=== PATIENT | female | born 1955 | race Caucasian/White ===

== ENCOUNTER 2016-10-01 21:09 | Emergency (ER) | payer BC ==
[~2016-10-01] VITALS: Ht 144.8 cm; Wt 62.5 kg
[~2016-10-01 21:09] MED LIST: AMLO-147 PO; ASPI325T4 PO; DOCU-144 PO; LANT3I SC; LINA5TAB PO; LINE600T6 PO; METO-448 PO; PANT40TA4 PO; PERCOCET PO; SAN30GM TOP; SITA1TAB7 PO
[2016-10-01 21:22] VITALS: Ht 144.8 cm; Wt 62.5 kg
[2016-10-01] MEDS ORDERED: SOD CHLORIDE 0.9% 1,000 ML IV STA (21:35)
[2016-10-01] MEDS ORDERED: DICLOFENAC SODIUM 37.5 MG/ML VIAL IV STA (21:45)
[2016-10-01] MEDS ORDERED: LABETALOL HCL 20MG INJ IV ONE (22:00)
[2016-10-01] MEDS ORDERED: LANT3I SC (22:12)
[2016-10-01] MEDS ORDERED: HYDR-3671 PO (22:13)
[2016-10-01] MEDS ORDERED: PRAV10TA43 PO (22:13)
[2016-10-01] MEDS ORDERED: LOSA100T7 PO (22:14)
[2016-10-01] MEDS ORDERED: SITA1TAB5 PO (22:15)
[2016-10-01] MEDS ORDERED: ASPI-664 PO (22:16)
[2016-10-01 22:26] LABS: BASOPHIL # 0.1 10^3/ul (0.0-0.1); BASOPHILS % 0.4 % (0.0-2.0); CHLORIDE 96 mmol/L (97-110); EOSINOPHILS # 0.2 10^3/ul (0.0-0.5); EOSINOPHILS % 1.4 % (0.0-7.0); HEMATOCRIT 33.3 % (37.0-47.0); HEMOGLOBIN 11.1 g/dl (12.0-16.0); LYMPHOCYTES % 22.3 % (15.0-51.0); MEAN CORPUSCULAR HEMOGLOBIN 27.8 pg (29.0-33.0); MEAN CORPUSCULAR HGB CONC 33.3 g/dl (32.0-37.0); MEAN CORPUSCULAR VOLUME 83.5 fl (82.0-101.0); MONOCYTE # 0.9 10^3/ul (0.3-0.9); MONOCYTES % 6.5 % (0.0-11.0); NEUTROPHIL # 9.2 10^3/ul (1.6-7.5); NEUTROPHILS % 69.4 % (39.0-77.0); PLATELET COUNT 454 10^3/UL (140-440); POTASSIUM 5.6 mmol/L (3.5-5.1); RED BLOOD COUNT 3.99 10^6/ul (4.20-5.40); RED CELL DISTRIBUTION WIDTH 16.6 % (11.5-14.5); SODIUM 137 mmol/L (135-144); UNCORRECTED WBC 13.3 10^3/ul (4.8-10.8); WHITE BLOOD COUNT 13.3 10^3/ul (4.8-10.8)
[2016-10-01 22:29] LABS: ANION GAP 19 (8-16); BLOOD UREA NITROGEN 28 mg/dl (7-20); CARBON DIOXIDE 28 mmol/L (21-31); CREATININE 1.03 mg/dl (0.44-1.00); GLUCOSE 309 mg/dl (70-220)
[2016-10-01] MEDS ORDERED: morphine 4 MG/ML VIAL IV STA (22:29)
[2016-10-01] MEDS ORDERED: ONDANSETRON 4 MG INJ IV STA (22:29)
[2016-10-01 22:30] LABS: CALCIUM 9.4 mg/dl (8.4-10.2)
[2016-10-01] MEDS ORDERED: METHYLPREDNISOLONE 125 MG INJ IV ONE (22:30)
[2016-10-01 22:32] LABS: CONDITION 1; LH ANALYZER COMMENTS 1
[2016-10-01 22:58] LABS: TROPONIN-I < 0.012 ng/ml (0.00-0.12)
[2016-10-02] VITALS: BP 160/70; PULSE 91; RESP 16
[2016-10-02] MEDS ORDERED: HYDR-906 PO (00:45)
[2016-10-02] MEDS ORDERED: METH-70 PO (00:45)
[2016-10-02] MEDS ORDERED: IBUP-1542 PO (00:45)
--- NOTE | 2016-10-02 00:47 | ERD ---
ER Documentation Chief Complaint Date/Time DATE: 10/02/16 TIME: 00:45 Chief Complaint neck & L arm x 3-4 days (05/30) HPI This is a 61-year-old female who complains of 4 days of continuous pain in the left trapezius and left posterior neck. There is no arm pain. She has no chest pain or shortness of breath no diaphoresis and nausea vomiting. The patient thinks that she slept wrong because she woke up in the morning at onset with the symptoms. Pain is worse with movement of the left shoulder or left arm or turning her head from side to side. The pain is a constant aching sharp with movement and better with rest. No radiculopathy ROS All systems reviewed and are negative except as per history of present illness. Medications Home Meds Active Scripts Hydrocodone/Acetaminophen ([place] 5-325 Tablet) 1 Each Tablet, 1 TAB PO Q6H Y for PAIN, #20 TAB Prov:LIZ AMBRIZ. DO 10/02/16 Methocarbamol* (Robaxin*) 750 Mg Tablet, 750 MG PO TID, #14 TAB Prov:LIZ AMBRIZ. DO 10/02/16 Ibuprofen* (Motrin*) 600 Mg Tab, 600 MG PO Q8, #30 TAB Prov:LIZ AMBRIZ. DO 10/02/16 Reported Medications Aspirin* (Aspirin* EC) 81 Mg Tablet.dr, 162 MG PO DAILY, TAB 10/01/16 Sitagliptin Phos/Metformin HCl (Janumet 50-1,000 mg Tablet) 1 Each Tablet, 1 EACH PO BID, TAB 10/01/16 Losartan Potassium* (Losartan Potassium*) 100 Mg Tablet, 100 MG PO DAILY, TAB 10/01/16 Pravastatin Sodium* (Pravastatin Sodium*) 10 Mg Tablet, 10 MG PO DAILY, TAB 10/01/16 Hydralazine Hcl* (Hydralazine Hcl*) 25 Mg Tab, 25 MG PO Q8, #90 TAB 10/01/16 Insulin Glargine* (Lantus*) 100 Unit/Ml Soln, 17 UNIT SC QHS, #1 VIAL 10/01/16 Discontinued Reported Medications Sitagliptin Phos-Metformin Hcl (Janumet) 50-1,000 Mg Tablet, 1 TAB PO BID, TAB 04/10/14 Aspirin* (Aspirin*) 325 Mg Tablet, 81 MG PO DAILY, TAB 04/10/14 Discontinued Scripts Metoprolol Tartrate* (Lopressor*) 25 Mg Tab, 12.5 MG PO BID, #60 TAB Prov:FRANCISCA KILLIAN MD 08/10/16 Linezolid (Linezolid) 600 Mg Tablet, 600 MG PO BID, #20 TAB Prov:FRANCISCA KILLIAN MD 08/09/16 Pantoprazole* (Pantoprazole*) 40 Mg Tablet.dr, 40 MG PO DAILY@06 for 1 Day Prov:FRANCISCA KILLIAN MD 07/25/16 Oxycodone Hcl/Acetaminophen (Percocet) 1 Tab Tab, 1 TAB PO Q6H Y for MODERATE PAIN LEVEL 4-6 for 1 Day, TAB Prov:FRANCISCA KILLIAN MD 07/25/16 Linagliptin (TRADJENTA) 5 Mg Tablet, 5 MG PO WITH DINNER for 1 Day, TAB Prov:FRANCISCA KILLIAN MD 07/25/16 Insulin Glargine* (Lantus*) 100 Unit/Ml Soln, 17 UNIT SC QPM for 1 Day Prov:FRANCISCA KILLIAN MD 07/25/16 Collagenase* (Santyl*) 30 Gm Oint..gm., 1 APPLIC TOP DAILY Y for Clean wound for 1 Day Prov:FRANCISCA KILLIAN MD 07/25/16 Docusate Sodium* (Colace*) 100 Mg Capsule, 100 MG PO BID, #60 CAP Prov:CARMEN ELLIOTT MD 07/09/16 Amlodipine Besylate* (Amlodipine Besylate*) 10 Mg Tablet, 10 MG PO DAILY for 30 Days, #30 TAB Prov:CARMEN ELLIOTT MD 07/09/16 Allergies Allergies: Coded Allergies: No Known Drug Allergy (Verified Allergy, Unknown, 10/01/16) PMhx/Soc History of Surgery: Yes (S/P FEMPOP BYPASS;CATARACT SURGERY) Anesthesia Reaction: No Hx Neurological Disorder: Yes Hx Respiratory Disorders: Yes (HIGH BLOOD PRESSURE;HIGH CHOL) Hx Cardiac Disorders: Yes Hx Psychiatric Problems: No Hx Miscellaneous Medical Probl: No Hx Alcohol Use: No Hx Substance Use: No Hx Tobacco Use: No Smoking Status: Never smoker FmHx Family History: No coronary disease Physical Exam Vitals Vital Signs Date Time Temp Pulse Resp B/P Pulse Ox O2 Delivery O2 Flow Rate FiO2 10/01/16 23:13 91 14 159/67 99 Room Air 10/01/16 22:11 92 13 136/56 99 Room Air 10/01/16 21:45 90 14 191/86 99 Room Air 10/01/16 21:22 97.7 107 18 199/86 99 Physical Exam Const: Well-developed, well-nourished Head: Atraumatic, normocephalic Eyes: Normal Conjunctiva, PERRLA, EOMI, normal sclera, no nystagmus ENT: Normal External Ears, Nose and Mouth, moist mucus membranes. Neck: Full range of motion. No meningismus, no lymphadenopathy, spasm to the left trapezius and left posterior cervical region pain is 100% reproducible with palpation and range of motion of head shoulder and left arm. Resp: Clear to auscultation bilaterally, no wheezing, rhonchi, rales Cardio: Regular rate and rhythm, no murmurs, S1 S2 present Abd: Soft, non tender x 4, non distended. Normal bowel sounds, no guarding or rebound, no pulsitile abdominal masses or bruits Skin: No petechiae or rashes, no ecchymosis , no maculopapular rash Back: No midline or flank tenderness Ext: No cyanosis, or edema, FROM x 4, normal inspection, neurovascularly intact x 4 Neur: Awake and alert, STR 5/5 x 4, sensation intact x 4, no focal findings, cerebellum intact Psych: Normal Mood and Affect Result Diagram: 10/01/16 2200 10/01/16 2350 Results 24 hrs Laboratory Tests Test 10/01/16 22:00 10/01/16 22:14 10/01/16 23:50 Anion Gap 19 Basophils # 0.110^3/ul Basophils % 0.4% Blood Morphology Comment Blood Urea Nitrogen 28mg/dl Calcium Level 9.4mg/dl Carbon Dioxide Level 28mmol/L Chloride Level 96mmol/L Creatinine 1.03mg/dl Eosinophils # 0.210^3/ul Eosinophils % 1.4% Glucose Level 309mg/dl Hematocrit 33.3% Hemoglobin 11.1g/dl Lactic Acid Level 1.3mmol/L Lymphocytes # 3.010^3/ul Lymphocytes % 22.3% Mean Corpuscular Hemoglobin 27.8pg Mean Corpuscular Hemoglobin Concent 33.3g/dl Mean Corpuscular Volume 83.5fl Mean Platelet Volume 9.0fl Monocytes # 0.910^3/ul Monocytes % 6.5% Neutrophils # 9.210^3/ul Neutrophils % 69.4% Nucleated Red Blood Cells # 0.010^3/ul Nucleated Red Blood Cells % 0.0/100WBC Platelet Count 30663^3/UL Potassium Level 5.6mmol/L 5.3mmol/L Red Blood Count 3.9910^6/ul Red Cell Distribution Width 16.6% Sodium Level 137mmol/L Troponin I < 0.012ng/ml White Blood Count 13.310^3/ul Bedside Glucose 329mg/dL Current Medications Medications (Trade) Dose Ordered Sig/Patricia Route PRN Reason Start Time Stop Time Status Last Admin Dose Admin Sodium Chloride (NS) 1,000 ml @ 1,000 mls/hr Q1H STAT IV 10/01/16 21:35 10/01/16 22:34 10/01/16 21:53 Diclofenac Sodium (Dyloject) 37.5 mg ONCE STAT IV 10/01/16 21:45 10/01/16 21:46 10/01/16 22:00 Labetalol HCl (Labetalol) 20 mg ONCE ONCE IV 10/01/16 22:00 10/01/16 22:01 10/01/16 21:56 Morphine Sulfate (morphine) 4 mg ONCE STAT IV 10/01/16 22:29 10/01/16 22:30 10/01/16 22:42 Ondansetron HCl (Zofran Inj) 4 mg ONCE STAT IV 10/01/16 22:29 10/01/16 22:30 10/01/16 22:42 Methylprednisolone Sodium Succinate (Solu-Medrol) 125 mg ONCE ONCE IV 10/01/16 22:30 10/01/16 22:31 10/01/16 22:41 Sodium Polystyrene Sulfonate (Kayexalate) 30 gm ONCE ONCE PO 10/02/16 01:00 10/02/16 01:01 UNV Procedures/MDM EKG: Rate/Rhythm: Sinus tachycardia heart rate 106 QRS, ST, QT: NORMAL OK, QRS, QT] Impression: [NORMAL EKG Repeat potassium is 5.3 will treat with 1 dose of Kayexalate Patient's pain is clearly musculoskeletal and not cardiac in origin pain is reproducible with palpation and movement] Departure Diagnosis: Primary Impression: Muscle spasm Additional Impression: Musculoskeletal pain Condition: Stable Patient Instructions: Muscle Spasm LIZ AMBRIZ DO Oct 02, 2016 00:47
[2016-10-02] MEDS ORDERED: NA POLYST SULFON 15 GM/60 ML BTL PO ONE (01:00)
== END 2016-10-02 01:16 | disposition home or self-care (01) ==
LOC: E/R 21:09
DX: M62.838 Other muscle spasm (principal); E11.9 Type 2 diabetes mellitus without complications; Z79.4 Long term (current) use of insulin; Z79.84 Long term (current) use of oral hypoglycemic drugs; Z79.82 Long term (current) use of aspirin
CPT/HCPCS: 36415; 80048; 82962; 83605; 84132; 84484; 85025; 93005; 96374; 96375; 99284; J2270; J2405; J2930; J7030; Z7610

== ENCOUNTER 2016-10-06 11:29 | Inpatient (IN) | payer BC ==
[~2016-10-06] VITALS: Ht 142.2 cm; Wt 61.1 kg
[~2016-10-06 11:29] MED LIST changes: -AMLO-147 PO; +ASPI-664 PO; -ASPI325T4 PO; -DOCU-144 PO; +HYDR-3671 PO; +HYDR-906 PO; +IBUP-1542 PO; -LINA5TAB PO; -LINE600T6 PO; +LOSA100T7 PO; +METH-70 PO; -METO-448 PO; -PANT40TA4 PO; -PERCOCET PO; +PRAV10TA43 PO; -SAN30GM TOP; +SITA1TAB5 PO; -SITA1TAB7 PO
--- NOTE | 2016-10-06 12:51 | HP ---
DATE OF ADMISSION: 10/06/2016 TYPE OF CONSULTATION: Vascular surgery consultation. Dear Doctors: HISTORY OF PRESENT ILLNESS: Ms. Butt is a 61-year-old female known to our vascular surgery servic e secondary to right lower extremity diabetic foot infection and gangrene of her third and fourth to es, in which she subsequently underwent a right lower extremity revascularization with the right prakash perficial femoral artery to distal dorsalis pedis artery in situ bypass. The patient had been follo wing up with us in our vascular surgery clinic for evaluation of her third toe tip gangrene that we have been following with allowing it to demarcate and try to salvage as much of the toe as possible. She has been taking care of her toe at home with local wound care with Betadine paint were been gr adually had debriding and areas of gangrene hoping to salvage as much of the toe. Today, she presen ts to our office with presentation of erythema, swelling and pain of her right lower extremity, gage cially the areas of demarcation with necrotic tissue. At the moment, she denies shortness of breath , chest pain, nausea, vomiting, fever or chills. She denies claudication or rest pain-like symptoms . REVIEW OF SYSTEMS: A 12-point review performed and negative except what is mentioned in the HPI. PAST MEDICAL HISTORY: Entails hypertension, diabetes, cholesterolemia peripheral neuropathy, overwe ight, poor compliance. PAST SURGICAL HISTORY: Right lower extremity revascularization, right 4th toe amputation, multiple areas of debridement of the right lower extremity. FAMILY HISTORY: Positive for coronary artery disease and diabetes. SOCIAL HISTORY: Denies alcohol, tobacco or illicit drug use. PHYSICAL EXAMINATION: GENERAL: Alert and oriented x3, no apparent distress. HEENT: Normocephalic, atraumatic. PERRLA, EOMI. Mucosa moist. NECK: Supple. No carotid bruit. PULMONARY: Clear to auscultation bilaterally, no crackles. CARDIOVASCULAR: S1, S2 present. No murmurs. ABDOMEN: Soft, nontender, nondistended. Bowel sounds positive. Truncal obesity. EXTREMITIES: Right lower extremity: Palpable femoral pulse, palpable graft at the knee and at the ankle. Motor, sensory intact. Cap refill 2 seconds. Surgical scar is well healed, distal aspect of the third to e with gangrene and some necrotic tissue at the area of demarcation. Presence of erythema, edema 2+ . Left lower extremity: Palpable femoral pulse, nonpalpable pedal pulse. Motor, sensory intact. Cap refill 2 to 3 seconds. No ulcers or edema identified. ASSESSMENT AND PLAN: 1. Bilateral lower extremity atherosclerosis with right lower extremity gangrene and diabetic foot infection. It seems the patient has developed a diabetic foot infection and cellulitis of the right lower extremity over the past few days. The patient would need to be admitted for IV antibiotics a nd for monitoring. At some point once the infection has been under control, we will evaluate for po ssible third tip of the toe amputation. For now, we will continue with her IV antibiotics as her ci rculation is adequate and we had recently checked her bypass which is patent. 2. Optimize vascular status (BP meds, diet, nutrition, exercise, sugar control, weight loss, antipl atelets). 3. Discussed findings, plan and management with the patient and her son at the bedside with a certi fied facility maintenance helper and they understand. Thank you for allowing us to partake in the care of your patient. Please call with any questions. Dictated By: ZULMA PARRISH/YOAV Conf#: [id number] DID#: [id number]
[2016-10-06 15:15] VITALS: BP 165/70; PULSE 104; RESP 18
[2016-10-06] MEDS ORDERED: ACETAMINOPHEN 650 MG SUPP PR PRN (16:00)
[2016-10-06] MEDS ORDERED: NACL 0.9% 3 ML SYG IV SCH (16:00)
[2016-10-06] MEDS ORDERED: ACETAMINOPHEN 325 MG TAB PO PRN (16:00)
[2016-10-06] MEDS ORDERED: ZOLPIDEM 5 MG TAB PO PRN (16:00)
[2016-10-06] MEDS ORDERED: BISACODYL 10 MG SUPP PR PRN (16:00)
[2016-10-06] MEDS ORDERED: DOCUSATE SODIUM 100 MG CAP PO PRN (16:00)
[2016-10-06] MEDS: OXYCODONE/ACETAMINOPHEN (5/325) TAB PO PRN (16:25)
--- NOTE | 2016-10-06 16:34 | HP ---
DATE OF ADMISSION: 10/06/2016 CONSULTANTS: 1. ZULMA JEFFERSON MD. 2. SAMUEL HARTMAN DPM. REASON FOR ADMISSION: Right foot cellulitis and bleeding. HISTORY OF PRESENT ILLNESS: This is a very pleasant 61-year-old female who is known to me from her prior hospitalization with a past medical history of right foot cellulitis and amputation of the rig ht 4th toe, right third toe debridement x2, diabetes mellitus type 2, recent superficial femoral art kelly bypass, hypertension, dyslipidemia, arthritis, anemia of chronic disease, rhabdomyolysis, who wa s seen and evaluated at [facility] by Dr. Samuel Hartman, podiatry today and was found to have worsening of h er right foot cellulitis and has been admitted to [facility] for further evaluatio n and treatment. The patient denies any chest pain, shortness of breath, nausea, vomiting and diarr hea. No headache, dizziness, lightheadedness. No change in visual acuity, diplopia, photophobia. Positive for neck pain, no restricted range of motion in upper and lower extremities. Positive for erythema and bleeding from her right foot at the surgical site. Otherwise the 12 review of systems has been found to be negative. PAST MEDICAL AND SURGICAL HISTORY: As above per HPI. MEDICATIONS: 1. Aspirin 81 mg. 2. Hydralazine 25 mg. 3. [place] 5/325. 4. Ibuprofen 600 mg. 5. Lantus 70 units. 6. Losartan 100 mg. 7. Robaxin 750 mg. 8. Atorvastatin 10 mg. 9. Janumet 1000/50. ALLERGIES: NO KNOWN DRUG ALLERGIES. FAMILY HISTORY: Positive for hypertension, diabetes mellitus. SOCIAL HISTORY: Negative x3 for smoking, alcohol, illicit drugs. REVIEW OF SYSTEMS: As above per HPI, otherwise 12 review of systems has been found to be negative. PHYSICAL EXAMINATION: VITAL SIGNS: Temperature 98.5, pulse 104, respiration 18, blood pressure 164/70, oxygen 98% in room air. GENERAL APPEARANCE: The patient is lying in bed comfortably without any distress. She is awake, al ert, oriented. She is able to answer my questions properly. EYES AND ENT: Conjunctivae and lids are normal. Pupils are normal. Extraocular normal. Hearing g rossly normal. Lips, teeth and gums are normal. Oral mucosa is moist. NECK: Supple. Trachea is midline. No lymphadenopathy. RESPIRATORY: Effort is normal. Clear to auscultate bilaterally. CARDIOVASCULAR: Normal S1, S2. Regular rhythm and rate. No murmur, no bruits, no edema. Peripher al pulses and radial pulses palpable. Cap refill is normal. CHEST: Normal expansion of thorax during inspiration. GASTROINTESTINAL: Abdomen is soft, nontender, not distended. Bowel sounds present. No guarding, n o rebound. GENITOURINARY: Deferred. MUSCULOSKELETAL: Upper extremities within normal limits. There is tenderness in the cervical regio n by palpation. No nystagmus sign or meningismus sign. There is no sign of meningitis. Upper ext remities within normal limit. Left lower extremities within normal limits. Right lower extremity h as erythema from the medial part of the blackwell down to right foot which is in an Avery bandage and there is some evidence of bleeding. NEUROLOGIC: Cranial nerves II through XII are grossly intact. PSYCHIATRIC: Normal judgment and insight. Alert and oriented x3. Mood and affect is normal. LABORATORY WORK AND IMAGING: Pending. ASSESSMENT AND PLAN: 1. Right foot cellulitis and gangrene of the right third toe. Podiatry and vascular surgeon has be en consulted. The patient has been started on Zosyn. We will follow up wound culture and treat acc ordingly. 2. Diabetes mellitus. Continue Lantus, insulin sliding scale and place the patient on a low carb d iet. 3. History essential hypertension. Continue medical management. 4. Dyslipidemia. Continue statin. 5. Arthritis. Continue pain medication. This is likely muscular. Place patient on a heat pad and pain medication. 6. Anemia of chronic disease, stable. We will continue to monitor patient closely. Further recomm endations, management and treatment as per clinical course. 7. Total amount of time was spent for evaluation of patient and admission workup 40 minutes. Dictated By: FRANCISCA PHELAN/NTS Conf#: [id number] DID#: [id number]
--- NOTE | 2016-10-06 17:53 | RADRPT ---
PROCEDURE: XR Chest. CLINICAL INDICATION: Right foot cellulitis. TECHNIQUE: Single AP portable chest COMPARISON: 08/03/2016 FINDINGS: The cardiomediastinal silhouette is within normal limits of size ..The lungs are clear without pleur al effusion or focal consolidation. No pneumothorax. The osseous structures and soft tissues are unr emarkable. IMPRESSION: 1. No evidence for active cardiopulmonary disease. RPTAT:AAJJ Deshaun Napoles Physician Date Time Electronically viewed and signed by Deshaun Napoles Physician on 10/06/2016 17:53 CALLY/
--- NOTE | 2016-10-06 17:59 | RADRPT ---
PROCEDURE: XR Foot. CLINICAL INDICATION: Right foot cellulitis and pain. TECHNIQUE: AP, lateral and oblique views of the right foot was obtained. The images were reviewed on a PACS workstation. COMPARISON: 07/12/2016 FINDINGS: Surgical clips along the anterior medial aspect of the ankle joint. Arterial calcification. Diffus e soft tissue swelling of the entire foot. Status post amputation of the third toe at the base of t he proximal phalanx. Marginal irregularity at the level of amputation. This may be postsurgical in nature, however, osteitis cannot be excluded. Stable degenerative changes of the first metatarsal phalangeal joint. No fracture or dislocation. IMPRESSION: 1. Status post amputation of the fourth toe. Diffuse cellulitis and soft tissue swelling. Underlyi ng osteomyelitis of the amputation site cannot be excluded. MRI may be considered for further evalu ation. RPTAT:AAJJ Physician Carla Date Time Electronically viewed and signed by Physician Carla on 10/06/2016 17:59 CALLY/
[2016-10-06] MEDS: PIPER-TAZO 3.375 GM IV (PMX) 100 ML IVPB SCH (18:07)
[2016-10-06] MEDS: INSULIN ASPART [NOVOLOG] 3 ML PEN SC SCH ×2 (18:09→22:33)
[2016-10-06 19:42] VITALS: BP 128/59; RESP 16
[2016-10-06] MEDS: ATORVASTATIN 10 MG TAB PO SCH (22:29)
[2016-10-06] MEDS: METHOCARBAMOL 750 MG TAB PO SCH (22:29)
[2016-10-06] MEDS: INSULIN GLARGINE [LANtus] 3 ML PEN SC SCH (22:31)
[2016-10-06] MEDS: morphine 2 MG INJ IV PRN (22:34)
[2016-10-06 22:45] LABS: INR 1.04; PROTIME 13.6 Sec (12.2-14.2); PT RATIO 1.1
[2016-10-06 22:46] LABS: ALBUMIN 3.6 g/dl (3.3-4.9); PARTIAL THROMBOPLASTIN TIME 36.1 Sec (25.0-35.0)
[2016-10-06 22:47] LABS: POTASSIUM 4.4 mmol/L (3.5-5.1)
[2016-10-06 22:48] LABS: CREATININE 0.82 mg/dl (0.44-1.00)
[2016-10-06 22:49] LABS: ALBUMIN/GLOBULIN RATIO 1.02; BILIRUBIN,INDIRECT 0.6 mg/dl (0-1.1); BILIRUBIN,TOTAL 0.6 mg/dl (0.2-1.3); CALCIUM 8.7 mg/dl (8.4-10.2); TOTAL PROTEIN 7.1 g/dl (6.1-8.1)
--- NOTE | 2016-10-06 23:52 | CONS ---
Date/Time of Note Date/Time of Note DATE: 10/06/16 TIME: 23:52 Assessment/Plan Assessment/Plan Problems: (1) Toe gangrene Comment: Distal right third toe gangrene is loose and bleeding. Bleeding was controlled using pressure. Sterile dressing was applied. (2) Cellulitis of right foot (3) Diabetes, polyneuropathy (4) Osteomyelitis of foot, right, acute Status: Acute (5) Peripheral vascular disease Status: Chronic Additional Assessment/Plan Continue IV antibiotics at this time. Patient will be followed in-house. Partial weightbearing allowed. Consultation Date/Type/Reason Admit Date/Time Oct 06, 2016 at 13:38 Date of Consultation: Oct 06, 2016 Type of Consultation: Foot and ankle surgery Reason for Consultation Right foot cellulitis with gangrene of right third toe. Hx of Present Illness Thank you very much for involving me in the care of this patient who is well known to me from her previous admissions and also from the amputation prevention center. She was seen in the clinic and was found to have right foot cellulitis with gangrenous changes to the right third toe. She was sent to the emergency room to be admitted to the hospital for IV antibiotics with possible surgery. Patient's past medical history is significant for multiple medical problems including diabetes mellitus type 2 with peripheral vascular disease, peripheral neuropathy, hypertension, status post recent superficial femoral artery bypass, dyslipidemia, arthritis, anemia of chronic disease, rhabdomyolysis. I was consulted to evaluate and treat. Past Medical History As per history of present illness. Past Surgical History As per history of present illness. Social History As per history of present illness. Smoking Status: Never smoker Exam/Review of Systems Vital Signs Vitals Vital Signs Date Time Temp Pulse Resp B/P Pulse Ox O2 Delivery O2 Flow Rate FiO2 10/06/16 19:42 99.0 89 16 128/59 95 10/06/16 15:15 Room Air Exam Patient is in no acute distress laying supine in bed. Patient's right foot edema is significantly decreased since her clinic visit. She continues to have gangrenous changes to the distal aspect of the right third toe. She is status post amputation of right fourth toe with a dry wound base. Erythema is reduced significantly as well. Dorsalis pedis and posterior tibial pulses not palpable at this time. There is no tenderness to palpation. X-rays and labs reviewed. Results Result Diagram: 10/06/16 2224 Results 24 hrs Laboratory Tests Test 10/06/16 16:44 10/06/16 22:19 10/06/16 22:24 Bedside Glucose 255 H 258 H Activated Partial Thromboplast Time 36.1 H Alanine Aminotransferase (ALT/SGPT) 14 Albumin 3.6 Albumin/Globulin Ratio 1.02 Alkaline Phosphatase 105 Anion Gap 15 Aspartate Amino Transf (AST/SGOT) 13 L Blood Urea Nitrogen 19 Calcium Level 8.7 Carbon Dioxide Level 28 Chloride Level 97 Creatinine 0.82 Direct Bilirubin 0.00 Globulin 3.50 H Glucose Level 204 INR International Normalized Ratio 1.04 Indirect Bilirubin 0.6 Potassium Level 4.4 Prothrombin Time 13.6 Prothrombin Time Ratio 1.1 Sodium Level 136 Total Bilirubin 0.6 Total Protein 7.1 Medications Medications Current Medications Ondansetron HCl (Zofran Tab) 4 mg Q6H PRN PO NAUSEA AND/OR VOMITING; Start at 16:00 Acetaminophen (Tylenol Tab) 650 mg Q6H PRN PO PAIN LEVEL 1-3 OR FEVER; Start at 16:00 Acetaminophen (Tylenol Supp) 650 mg Q6H PRN [place] PAIN LEVEL 1-3 OR FEVER; Start 10/06/16 at 16:00 Oxycodone/ Acetaminophen (Percocet (5/ 325)) 1 tab Q6H PRN PO MODERATE PAIN LEVEL 4-6 Last administered on 10/06/16 16:25; Admin Dose 1 TAB; Start at 16:00 Morphine Sulfate (morphine) 2 mg Q4H PRN IV SEVERE PAIN LEVEL 7-10 Last administered on 10/06/16 22:34; Admin Dose 2 MG; Start 10/06/16 at 16:00 Docusate Sodium (Colace) 100 mg Q12H PRN PO CONSTIPATION; Start 10/06/16 at 16: 00 Bisacodyl (Dulcolax Supp) 10 mg DAILY PRN [place] CONSTIPATION; Start 10/06/16 at 16 :00 Zolpidem Tartrate (Ambien) 5 mg QHS PRN PO SLEEP; Start 10/06/16 at 16:00 Enoxaparin Sodium 40 mg 40 mg DAILY SC ; Start 10/07/16 at 09:00 Piperacillin Sod/ Tazobactam Sod (Zosyn 3.375gm/ 100 ml (Pmx)) 100 ml @ 25 mls/ hr TID@02,10,18 IVPB Last administered on 10/06/16 18:07; Admin Dose 25 MLS/HR ; Start 10/06/16 at 18:00 Aspirin (Halfprin) 162 mg DAILY PO ; Start 10/07/16 at 09:00 Hydralazine HCl (Apresoline) 25 mg Q8 PO Last administered on 10/06/16 22:42; Admin Dose 25 MG; Start 10/06/16 at 22:00 Insulin Glargine (Lantus) 15 unit QHS SC Last administered on 10/06/16 22:31; Admin Dose 15 UNIT; Start 10/06/16 at 21:00 Losartan Potassium (Cozaar) 100 mg DAILY PO ; Start 10/07/16 at 09:00 Methocarbamol (Robaxin) 750 mg TID PO Last administered on 10/06/16 22:29; Admin Dose 750 MG; Start 10/06/16 at 21:00 Atorvastatin Calcium (Lipitor) 10 mg DAILY@21 PO Last administered on 22:29; Admin Dose 10 MG; Start 10/06/16 at 21:00 Linagliptin (Tradjenta) 5 mg DAILY PO ; Start 10/07/16 at 09:00 Influenza Virus Vaccine (Fluzone) 0.5 ml ONCE ONCE IM* ; Start 10/07/16 at 10:00 ; Stop 10/07/16 at 10:01 ALEXANDREA HARTMAN DPM Oct 06, 2016 23:52
[2016-10-07] MEDS: PIPER-TAZO 3.375 GM IV (PMX) 100 ML IVPB SCH ×3 (02:00→18:17)
[2016-10-07 06:13] LABS: BASOPHIL # 0.1 10^3/ul (0.0-0.1); BASOPHILS % 0.4 % (0.0-2.0); EOSINOPHILS # 0.1 10^3/ul (0.0-0.5); EOSINOPHILS % 0.7 % (0.0-7.0); HEMATOCRIT 26.2 % (37.0-47.0); HEMOGLOBIN 8.8 g/dl (12.0-16.0); LYMPHOCYTES # 1.7 10^3/ul (0.8-2.9); LYMPHOCYTES % 11.3 % (15.0-51.0); MEAN CORPUSCULAR HEMOGLOBIN 27.9 pg (29.0-33.0); MEAN CORPUSCULAR HGB CONC 33.6 g/dl (32.0-37.0); MEAN CORPUSCULAR VOLUME 82.8 fl (82.0-101.0); MEAN PLATELET VOLUME 8.6 fl (7.4-10.4); MONOCYTE # 1.2 10^3/ul (0.3-0.9); NEUTROPHIL # 11.9 10^3/ul (1.6-7.5); NEUTROPHILS % 79.6 % (39.0-77.0); PLATELET COUNT 369 10^3/UL (140-440); RED BLOOD COUNT 3.16 10^6/ul (4.20-5.40); RED CELL DISTRIBUTION WIDTH 15.9 % (11.5-14.5); UNCORRECTED WBC 14.9 10^3/ul (4.8-10.8); WHITE BLOOD COUNT 14.9 10^3/ul (4.8-10.8)
[2016-10-07 06:26] LABS: CONDITION 1; LH ANALYZER COMMENTS 1
[2016-10-07 06:28] LABS: POTASSIUM 4.7 mmol/L (3.5-5.1)
[2016-10-07 06:31] LABS: MAGNESIUM 1.7 mg/dl (1.7-2.5)
[2016-10-07 06:31] LABS: CREATININE 0.74 mg/dl (0.44-1.00)
[2016-10-07 06:32] LABS: CALCIUM 8.4 mg/dl (8.4-10.2)
[2016-10-07 06:48] LABS: C-REACTIVE PROTEIN 19.6 mg/dl (0.0-0.9)
[2016-10-07 07:36] VITALS: BP 126/56; RESP 18
[2016-10-07] MEDS: morphine 2 MG INJ IV PRN ×2 (08:15→13:57)
[2016-10-07] MEDS: LINAGLIPTIN 5 MG TABLET PO SCH (08:18)
[2016-10-07] MEDS: ASPIRIN (EC) 81 MG TAB PO SCH (08:18)
[2016-10-07] MEDS: LOSARTAN 50 MG TAB PO SCH (08:18)
[2016-10-07] MEDS: METHOCARBAMOL 750 MG TAB PO SCH ×3 (08:18→21:57)
[2016-10-07] MEDS: ENOXAPARIN 40 MG/0.4 ML SYG SC SCH (08:20)
[2016-10-07] MEDS: INSULIN ASPART [NOVOLOG] 3 ML PEN SC SCH ×4 (08:20→22:07)
[2016-10-07 09:14] LABS: ADD UMIC YES; URINE BILIRUBIN (Dip) NEGATIVE (NEGATIVE); URINE BLOOD (Dip) NEGATIVE (NEGATIVE); URINE COLOR LT. YELLOW (YELLOW); URINE GLUCOSE (Dip) NEGATIVE (NEGATIVE); URINE KETONES (Dip) NEGATIVE (NEGATIVE); URINE LEUKOCYTE ESTERASE (Dip) 2+ (NEGATIVE); URINE NITRITE (Dip) NEGATIVE (NEGATIVE); URINE TOTAL PROTEIN (Dip) 2+ (NEGATIVE); URINE UROBILINOGEN (Dip) 0.2 E.U./dL (0.1-1.0)
[2016-10-07 09:32] LABS: URINE RBCS 0-2 /HPF (0)
[2016-10-07 09:33] LABS: BACTERIA,URINE FEW
[2016-10-07] MEDS ORDERED: INFLUENZA VIRUS VACCINE 0.5 ML SYG IM* ONE (10:00)
[2016-10-07] MEDS: OXYCODONE/ACETAMINOPHEN (5/325) TAB PO PRN (10:51)
--- NOTE | 2016-10-07 13:33 | RADRPT ---
Vent Rate: 89 bpm RR Interval: [address] Interval: 140 msec QRS Duration: 80 msec QT Interval: 354 msec QTC Interval: 430 msec P-R-T [place]: 45 - 28 - 57 degrees Normal sinus rhythm Normal ECG Electronically Signed By: Jasvir Diez [id number]
[2016-10-07 13:56] VITALS: BP 108/53; PULSE 84
--- NOTE | 2016-10-07 15:07 | PN ---
Date/Time of Note Date/Time of Note DATE: 10/07/16 TIME: 15:04 Assessment/Plan VTE Prophylaxis VTE Prophylaxis Intervention: heparin Lines/Catheters IV Catheter Type (from Nrs): Peripheral IV Assessment/Plan Chief Complaint/Hosp Course ASSESSMENT AND PLAN: 1. Right foot cellulitis and gangrene of the right third toe. Podiatry and vascular surgeon has been consulted. The patient has been started on Zosyn. We will follow up wound culture and treat accordingly. 2. Diabetes mellitus. Continue Lantus, insulin sliding scale and place the patient on a low carb diet. 3. History essential hypertension. Continue medical management. 4. Dyslipidemia. Continue statin. 5. Arthritis. Continue pain medication. This is likely muscular. Place patient on a heat pad and pain medication. 6. Anemia of chronic disease, stable. Start patient on ferrous sulfate, type and cross and transfuse if hemoglobin less than 7.5 We will continue monitor patient closely for recommendation management treatment as clinical course Problems: Subjective 24 Hr Interval Summary Free Text/Dictation Patient continues to complain of having right foot pain No nausea vomiting diarrhea Exam/Review of Systems Vital Signs Vitals Vital Signs Date Time Temp Pulse Resp B/P Pulse Ox O2 Delivery O2 Flow Rate FiO2 10/07/16 13:56 84 108/53 10/07/16 07:36 98.5 18 93 10/06/16 15:15 Room Air Intake and Output 10/06/16 10/06/16 10/07/16 15:00 23:00 07:00 Intake Total 400 ml 250 ml Balance 400 ml 250 ml Exam General: The patient is well-developed, Not in acute distress. HEENT: Atraumatic, normocephalic. The pupils are equal and round . Neck: Supple with full range of motion. Chest: Normal expansion of the thorax during inspiration Lungs: Clear to auscultation bilaterally Heart: Normal S1-S2, Regular rhythm and rate. Abdomen: Soft , nontender, nondistended , bowel sounds are present. Extremities: Right foot cellulitis and abscess, no edema no cyanosis Neurologic: Normal mental status,The patient is awake, alert and oriented . Results Result Diagram: 10/07/16 0523 10/07/16 0515 Results 24 hrs Laboratory Tests Test 10/06/16 16:44 10/06/16 22:19 10/06/16 22:24 10/07/16 01:26 Bedside Glucose 255 H 258 H 211 Activated Partial Thromboplast Time 36.1 H Alanine Aminotransferase (ALT/SGPT) 14 Albumin 3.6 Albumin/Globulin Ratio 1.02 Alkaline Phosphatase 105 Anion Gap 15 Aspartate Amino Transf (AST/SGOT) 13 L Blood Urea Nitrogen 19 Calcium Level 8.7 Carbon Dioxide Level 28 Chloride Level 97 Creatinine 0.82 Direct Bilirubin 0.00 Globulin 3.50 H Glucose Level 204 INR International Normalized Ratio 1.04 Indirect Bilirubin 0.6 Potassium Level 4.4 Prothrombin Time 13.6 Prothrombin Time Ratio 1.1 Sodium Level 136 Total Bilirubin 0.6 Total Protein 7.1 Test 10/07/16 03:00 10/07/16 05:15 10/07/16 05:23 10/07/16 08:10 Urine Bacteria FEW Urine Bilirubin NEGATIVE Urine Clarity CLOUDY Urine Color LT. YELLOW Urine Epithelial Cells FEW Urine Glucose NEGATIVE Urine Hemoglobin NEGATIVE Urine Ketones NEGATIVE Urine Leukocyte Esterase 2+ H Urine Microscopic RBC 0-2 Urine Microscopic WBC >200 Urine Nitrite NEGATIVE Urine Specific [place] 1.020 Urine Total Protein 2+ H Urine Urobilinogen 0.2 E.U./dL Urine pH 5.5 Anion Gap 13 Blood Urea Nitrogen 16 Calcium Level 8.4 Carbon Dioxide Level 28 Chloride Level 97 Creatinine 0.74 Glucose Level 218 Potassium Level 4.7 Sodium Level 133 L Basophils # 0.1 Basophils % 0.4 Blood Morphology Comment C-Reactive Protein 19.6 H Eosinophils # 0.1 Eosinophils % 0.7 Erythrocyte Sedimentation Rate 93 H Hematocrit 26.2 #L Hemoglobin 8.8 #L Hemoglobin A1c 8.3 H Lymphocytes # 1.7 Lymphocytes % 11.3 L Magnesium Level 1.7 Mean Corpuscular Hemoglobin 27.9 L Mean Corpuscular Hemoglobin Concent 33.6 Mean Corpuscular Volume 82.8 Mean Platelet Volume 8.6 Monocytes # 1.2 H Monocytes % 8.0 Neutrophils # 11.9 H Neutrophils % 79.6 H Nucleated Red Blood Cells # 0.0 Nucleated Red Blood Cells % 0.0 Platelet Count 369 Red Blood Count 3.16 #L Red Cell Distribution Width 15.9 H White Blood Count 14.9 H Bedside Glucose 201 Test 10/07/16 11:38 Bedside Glucose 299 H Medications Medications Current Medications Ondansetron HCl (Zofran Tab) 4 mg Q6H PRN PO NAUSEA AND/OR VOMITING; Start at 16:00 Acetaminophen (Tylenol Tab) 650 mg Q6H PRN PO PAIN LEVEL 1-3 OR FEVER Last administered on 10/07/16 03:39; Admin Dose 650 MG; Start 10/06/16 at 16:00 Acetaminophen (Tylenol Supp) 650 mg Q6H PRN [place] PAIN LEVEL 1-3 OR FEVER; Start 10/06/16 at 16:00 Oxycodone/ Acetaminophen (Percocet (5/ 325)) 1 tab Q6H PRN PO MODERATE PAIN LEVEL 4-6 Last administered on 10/07/16 10:51; Admin Dose 1 TAB; Start at 16:00 Morphine Sulfate (morphine) 2 mg Q4H PRN IV SEVERE PAIN LEVEL 7-10 Last administered on 10/07/16 13:57; Admin Dose 2 MG; Start 10/06/16 at 16:00 Docusate Sodium (Colace) 100 mg Q12H PRN PO CONSTIPATION; Start 10/06/16 at 16: 00 Bisacodyl (Dulcolax Supp) 10 mg DAILY PRN [place] CONSTIPATION; Start 10/06/16 at 16 :00 Zolpidem Tartrate (Ambien) 5 mg QHS PRN PO SLEEP; Start 10/06/16 at 16:00 Enoxaparin Sodium 40 mg 40 mg DAILY SC Last administered on 10/07/16 08:20; Admin Dose 40 MG; Start 10/07/16 at 09:00 Piperacillin Sod/ Tazobactam Sod (Zosyn 3.375gm/ 100 ml (Pmx)) 100 ml @ 25 mls/ hr TID@,18 IVPB Last administered on 10/07/16 10:26; Admin Dose 25 MLS/HR ; Start 10/06/16 at 18:00 Aspirin (Halfprin) 162 mg DAILY PO Last administered on 10/07/16 08:18; Admin Dose 162 MG; Start 10/07/16 at 09:00 Hydralazine HCl (Apresoline) 25 mg Q8 PO Last administered on 10/07/16 05:52; Admin Dose 25 MG; Start 10/06/16 at 22:00 Insulin Glargine (Lantus) 15 unit QHS SC Last administered on 2/16/17at 22:31; Admin Dose 15 UNIT; Start 10/06/16 at 21:00 Losartan Potassium (Cozaar) 100 mg DAILY PO Last administered on 10/07/16 08: 18; Admin Dose 100 MG; Start 10/07/16 at 09:00 Methocarbamol (Robaxin) 750 mg TID PO Last administered on 10/07/16 12:47; Admin Dose 750 MG; Start 10/06/16 at 21:00 Atorvastatin Calcium (Lipitor) 10 mg DAILY@21 PO Last administered on 22:29; Admin Dose 10 MG; Start 10/06/16 at 21:00 Linagliptin (Tradjenta) 5 mg DAILY PO Last administered on 10/07/16 08:18; Admin Dose 5 MG; Start 10/07/16 at 09:00 FRANCISCA KILLIAN MD Oct 07, 2016 15:07
[2016-10-07] MEDS: ONDANSETRON 4 MG TAB PO PRN (18:19)
[2016-10-07 21:01] VITALS: BP 168/70; RESP 17
[2016-10-07] MEDS: LACTOBACILLUS RHAMNOSUS CAP PO SCH (21:56)
[2016-10-07] MEDS: ATORVASTATIN 10 MG TAB PO SCH (21:56)
[2016-10-07] MEDS: CLINDAMYCIN 300 MG/D5W (PMX) 50 ML IVPB SCH (21:57)
[2016-10-07 22:00] VITALS: BP 187/73; PULSE 85
[2016-10-07] MEDS: INSULIN GLARGINE [LANtus] 3 ML PEN SC SCH (22:09)
[2016-10-08 02:27] VITALS: BP 111/55; PULSE 79
[2016-10-08 02:39] VITALS: Ht 142.2 cm; Wt 61.1 kg
[2016-10-08] MEDS: PIPER-TAZO 3.375 GM IV (PMX) 100 ML IVPB SCH ×3 (03:00→18:16)
[2016-10-08 05:53] VITALS: BP 164/71; PULSE 80
[2016-10-08] MEDS: CLINDAMYCIN 300 MG/D5W (PMX) 50 ML IVPB SCH ×3 (05:56→22:56)
[2016-10-08] MEDS: INSULIN ASPART [NOVOLOG] 3 ML PEN SC SCH ×4 (08:00→21:05)
[2016-10-08] MEDS: OXYCODONE/ACETAMINOPHEN (5/325) TAB PO PRN ×2 (08:15→20:55)
[2016-10-08] MEDS: FERROUS SULFATE (EC) 325 MG TAB PO SCH (08:15)
[2016-10-08 08:24] LABS: BASOPHIL # 0.1 10^3/ul (0.0-0.1); BASOPHILS % 0.5 % (0.0-2.0); EOSINOPHILS # 0.3 10^3/ul (0.0-0.5); EOSINOPHILS % 2.1 % (0.0-7.0); HEMATOCRIT 28.6 % (37.0-47.0); HEMOGLOBIN 9.6 g/dl (12.0-16.0); LYMPHOCYTES # 2.1 10^3/ul (0.8-2.9); MEAN CORPUSCULAR HEMOGLOBIN 27.9 pg (29.0-33.0); MEAN CORPUSCULAR HGB CONC 33.6 g/dl (32.0-37.0); MEAN CORPUSCULAR VOLUME 83.2 fl (82.0-101.0); MEAN PLATELET VOLUME 8.7 fl (7.4-10.4); MONOCYTE # 1.2 10^3/ul (0.3-0.9); MONOCYTES % 7.9 % (0.0-11.0); NEUTROPHIL # 11.2 10^3/ul (1.6-7.5); NEUTROPHILS % 75.5 % (39.0-77.0); PLATELET COUNT 449 10^3/UL (140-440); RED BLOOD COUNT 3.44 10^6/ul (4.20-5.40); RED CELL DISTRIBUTION WIDTH 15.9 % (11.5-14.5); UNCORRECTED WBC 14.8 10^3/ul (4.8-10.8); WHITE BLOOD COUNT 14.8 10^3/ul (4.8-10.8)
[2016-10-08 08:27] LABS: CONDITION 1; LH ANALYZER COMMENTS 1
[2016-10-08 08:34] LABS: POTASSIUM 4.6 mmol/L (3.5-5.1)
[2016-10-08 08:36] LABS: CREATININE 0.95 mg/dl (0.44-1.00)
[2016-10-08] MEDS: LINAGLIPTIN 5 MG TABLET PO SCH (08:45)
[2016-10-08] MEDS: LACTOBACILLUS RHAMNOSUS CAP PO SCH ×2 (08:45→20:53)
[2016-10-08] MEDS: ASCORBIC ACID 500 MG TAB PO SCH (08:45)
[2016-10-08] MEDS: ONDANSETRON 4 MG TAB PO PRN (08:45)
[2016-10-08] MEDS: LOSARTAN 50 MG TAB PO SCH (08:45)
[2016-10-08] MEDS: ASPIRIN (EC) 81 MG TAB PO SCH (08:45)
[2016-10-08] MEDS: ENOXAPARIN 40 MG/0.4 ML SYG SC SCH (08:48)
[2016-10-08] MEDS: METHOCARBAMOL 750 MG TAB PO SCH ×3 (10:05→20:52)
--- NOTE | 2016-10-08 10:30 | PN ---
Date/Time of Note Date/Time of Note DATE: 10/08/16 TIME: 10:27 Assessment/Plan Lines/Catheters IV Catheter Type (from [facility]): Saline Lock Assessment/Plan Chief Complaint/Hosp Course -Bilateral lower extremity atherosclerosis with right lower extremity gangrene and diabetic foot infection. It seems the patient has developed a diabetic foot infection and cellulitis of the right lower extremity over the past few days. Her circulation is adequate and we had recently checked her bypass which is patent. -Continue IV antibiotics for 14 days course -At some point once the infection has been resolved, we will evaluate for possible third tip of the toe amputation. -Optimize vascular status (BP meds, diet, nutrition, exercise, sugar control, weight loss, antiplatelets). -Discussed findings, plan and management with the patient and her son at the bedside with a certified bankruptcy judge and they understand. -Thank you for allowing us to partake in the care of your patient. Please call with any questions. Problems: Subjective 24 Hr Interval Summary No new vascular events overnight Exam/Review of Systems Vital Signs Vitals Vital Signs Date Time Temp Pulse Resp B/P Pulse Ox O2 Delivery O2 Flow Rate FiO2 10/08/16 05:53 80 164/71 10/07/16 21:01 98.6 17 95 10/06/16 15:15 Room Air Intake and Output 10/07/16 10/07/16 10/08/16 15:00 23:00 07:00 Intake Total 100 ml 100 ml 220 ml Balance 100 ml 100 ml 220 ml Exam Free Text/Dictation GENERAL: Alert and oriented x3, n PULMONARY: Clear to auscultation bilaterally CARDIOVASCULAR: S1, S2 present ABDOMEN: Soft, nontender, nondistended. Bowel sounds positive. Truncal obesity. EXTREMITIES: Right lower extremity: Palpable femoral pulse, palpable graft at the knee and at the ankle. Motor, sensory intact. Cap refill 2 seconds. Surgical scar is well healed, distal aspect of the third toe with gangrene and some necrotic tissue at the area of demarcation. Erythema improving, edema 2+. Left lower extremity: Palpable femoral pulse, nonpalpable pedal pulse. Motor, sensory intact. Cap refill 2 to 3 seconds. No ulcers or edema identified. Results Result Diagram: 10/08/16 0720 10/08/16 0726 ZULMA JEFFERSON MD Oct 08, 2016 10:30
[2016-10-08 13:20] VITALS: BP 125/60; PULSE 84
--- NOTE | 2016-10-08 17:25 | PN ---
Date/Time of Note Date/Time of Note DATE: 10/08/16 TIME: 17:23 Assessment/Plan VTE Prophylaxis VTE Prophylaxis Intervention: LMWH Lines/Catheters IV Catheter Type (from Nrs): Saline Lock Assessment/Plan Chief Complaint/Hosp Course 1. Right foot cellulitis and gangrene of the right third toe. Podiatry and vascular surgeon consults appreciated - emy Moise, We will follow up wound culture and treat accordingly. 2. Diabetes mellitus. Continue Lantus, insulin sliding scale and place the patient on a low carb diet. 3. History essential hypertension. Continue medical management. 4. Dyslipidemia. Continue statin. 5. Arthritis. Continue pain medication. This is likely muscular. Place patient on a heat pad and pain medication. 6. Anemia of chronic disease, stable. Start patient on ferrous sulfate, type and cross and transfuse if hemoglobin less than 7.5 PPx- Lovenox Problems: Subjective 24 Hr Interval Summary Constitutional: no complaints Exam/Review of Systems Vital Signs Vitals Vital Signs Date Time Temp Pulse Resp B/P Pulse Ox O2 Delivery O2 Flow Rate FiO2 10/08/16 13:20 84 125/60 10/07/16 21:01 98.6 17 95 10/06/16 15:15 Room Air Intake and Output 10/07/16 10/07/16 10/08/16 15:00 23:00 07:00 Intake Total 100 ml 100 ml 220 ml Balance 100 ml 100 ml 220 ml Exam Constitutional: alert, oriented Respiratory: clear to auscultation Cardiovascular: regular rate and rhythm Gastrointestinal: soft, No distended Musculoskeletal: No nl extremities to inspection Results Result Diagram: 10/08/16 0720 10/08/16 0726 Results 24 hrs Laboratory Tests Test 10/07/16 22:02 10/08/16 02:24 10/08/16 07:20 10/08/16 07:26 Bedside Glucose 235 H 169 Basophils # 0.1 Basophils % 0.5 Blood Morphology Comment Eosinophils # 0.3 Eosinophils % 2.1 Hematocrit 28.6 L Hemoglobin 9.6 L Lymphocytes # 2.1 Lymphocytes % 14.0 L Mean Corpuscular Hemoglobin 27.9 L Mean Corpuscular Hemoglobin Concent 33.6 Mean Corpuscular Volume 83.2 Mean Platelet Volume 8.7 Monocytes # 1.2 H Monocytes % 7.9 Neutrophils # 11.2 H Neutrophils % 75.5 Nucleated Red Blood Cells # 0.0 Nucleated Red Blood Cells % 0.0 Platelet Count 449 #H Red Blood Count 3.44 L Red Cell Distribution Width 15.9 H White Blood Count 14.8 H Anion Gap 16 Blood Urea Nitrogen 19 Calcium Level 9.0 Carbon Dioxide Level 28 Chloride Level 97 Creatinine 0.95 Glucose Level 129 # Potassium Level 4.6 Sodium Level 136 Test 10/08/16 07:42 10/08/16 11:46 10/08/16 17:08 Bedside Glucose 135 264 H 135 Medications Medications Current Medications Ondansetron HCl (Zofran Tab) 4 mg Q6H PRN PO NAUSEA AND/OR VOMITING Last administered on 10/08/16 08:45; Admin Dose 4 MG; Start 10/06/16 at 16:00 Acetaminophen (Tylenol Tab) 650 mg Q6H PRN PO PAIN LEVEL 1-3 OR FEVER Last administered on 10/07/16 03:39; Admin Dose 650 MG; Start 10/06/16 at 16:00 Acetaminophen (Tylenol Supp) 650 mg Q6H PRN [place] PAIN LEVEL 1-3 OR FEVER; Start 10/06/16 at 16:00 Oxycodone/ Acetaminophen (Percocet (5/ 325)) 1 tab Q6H PRN PO MODERATE PAIN LEVEL 4-6 Last administered on 10/08/16 08:15; Admin Dose 1 TAB; Start at 16:00 Morphine Sulfate (morphine) 2 mg Q4H PRN IV SEVERE PAIN LEVEL 7-10 Last administered on 10/07/16 13:57; Admin Dose 2 MG; Start 10/06/16 at 16:00 Docusate Sodium (Colace) 100 mg Q12H PRN PO CONSTIPATION; Start 10/06/16 at 16: 00 Bisacodyl (Dulcolax Supp) 10 mg DAILY PRN [place] CONSTIPATION; Start 10/06/16 at 16 :00 Zolpidem Tartrate (Ambien) 5 mg QHS PRN PO SLEEP; Start 10/06/16 at 16:00 Enoxaparin Sodium 40 mg 40 mg DAILY SC Last administered on 10/08/16 08:48; Admin Dose 40 MG; Start 10/07/16 at 09:00 Piperacillin Sod/ Tazobactam Sod (Zosyn 3.375gm/ 100 ml (Pmx)) 100 ml @ 25 mls/ hr TID@02,10,18 IVPB Last administered on 10/08/16 10:05; Admin Dose 25 MLS/HR ; Start 10/06/16 at 18:00 Aspirin (Halfprin) 162 mg DAILY PO Last administered on 10/08/16 08:45; Admin Dose 162 MG; Start 10/07/16 at 09:00 Hydralazine HCl (Apresoline) 25 mg Q8 PO Last administered on 10/08/16 13:20; Admin Dose 25 MG; Start 10/06/16 at 22:00 Insulin Glargine (Lantus) 15 unit QHS SC Last administered on 10/07/16 22:09; Admin Dose 15 UNIT; Start 10/06/16 at 21:00 Losartan Potassium (Cozaar) 100 mg DAILY PO Last administered on 10/08/16 08: 45; Admin Dose 100 MG; Start 10/07/16 at 09:00 Methocarbamol (Robaxin) 750 mg TID PO Last administered on 10/08/16 13:17; Admin Dose 750 MG; Start 10/06/16 at 21:00 Atorvastatin Calcium (Lipitor) 10 mg DAILY@21 PO Last administered on 21:56; Admin Dose 10 MG; Start 10/06/16 at 21:00 Linagliptin (Tradjenta) 5 mg DAILY PO Last administered on 10/08/16 08:45; Admin Dose 5 MG; Start 10/07/16 at 09:00 Ferrous Sulfate (Ferrous Sulfate (Ec)) 325 mg DAILY PO Last administered on 08:15; Admin Dose 325 MG; Start 10/08/16 at 09:00 Ascorbic Acid 500 mg 500 mg DAILY PO Last administered on 10/08/16 08:45; Admin Dose 500 MG; Start 10/08/16 at 09:00 Clindamycin HCl/ Dextrose (Cleocin 300 Mg/ D5W (Pmx)) 50 ml @ 100 mls/hr Q8 IVPB Last administered on 10/08/16 13:17; Admin Dose 100 MLS/HR; Start at 22:00 Lactobacillus Acidophilus/ Rhamnosus (Culturelle) 1 cap BID PO Last administered on 10/08/16 08:45; Admin Dose 1 CAP; Start 10/07/16 at 21:00 JUNG PADILLA Oct 08, 2016 17:25
[2016-10-08] MEDS: ATORVASTATIN 10 MG TAB PO SCH (20:53)
[2016-10-08] MEDS: INSULIN GLARGINE [LANtus] 3 ML PEN SC SCH (21:04)
[2016-10-08 21:07] VITALS: BP 133/63; RESP 19
[2016-10-08 22:56] VITALS: BP 138/62; PULSE 80
--- NOTE | 2016-10-08 23:51 | PN ---
Date/Time of Note Date/Time of Note DATE: 10/08/16 TIME: 23:51 Assessment/Plan Lines/Catheters IV Catheter Type (from [facility]): Saline Lock Assessment/Plan Problems: (1) Non-pressure chronic ulcer of other part of right foot with necrosis of bone (2) Osteomyelitis of foot, right, acute Status: Acute (3) Cellulitis of right foot (4) Diabetes, polyneuropathy (5) Peripheral vascular disease Status: Chronic Assessment/Plan Continue daily dressing changes. Continue application of Santyl to the open wound. Patient will be seen in-house. Prognosis is improved. Subjective 24 Hr Interval Summary Patient was seen at bedside. She is in no acute distress. Denies pain in her right foot. Patient denies fever chills nausea or vomiting. Reports no overnight adverse events. Constitutional: no complaints Pain Control: well controlled Exam/Review of Systems Vital Signs Vitals Vital Signs Date Time Temp Pulse Resp B/P Pulse Ox O2 Delivery O2 Flow Rate FiO2 10/15/16 08:07 98.0 80 18 136/64 97 Exam Free Text/Dictation Patient is in no acute distress laying supine in bed. Patient's right foot edema is significantly decreased since her clinic visit. Distal aspect of right third toe has an open wound which shows no bleeding and no pus. She is status post amputation of right fourth toe with a dry wound base. Erythema is reduced significantly as well. Dorsalis pedis and posterior tibial pulses not palpable at this time. There is no tenderness to palpation. Results Result Diagram: 10/14/16 0531 ALEXANDREA HARTMAN DPM Oct 08, 2016 23:51
[2016-10-09] MEDS: BACLOFEN 10 MG TAB PO PRN (01:13)
[2016-10-09] MEDS: PIPER-TAZO 3.375 GM IV (PMX) 100 ML IVPB SCH ×3 (01:14→17:50)
[2016-10-09] MEDS: CLINDAMYCIN 300 MG/D5W (PMX) 50 ML IVPB SCH ×3 (05:38→22:28)
[2016-10-09 07:41] LABS: BASOPHIL # 0.1 10^3/ul (0.0-0.1); BASOPHILS % 0.6 % (0.0-2.0); EOSINOPHILS # 0.5 10^3/ul (0.0-0.5); EOSINOPHILS % 4.4 % (0.0-7.0); HEMOGLOBIN 9.7 g/dl (12.0-16.0); LYMPHOCYTES # 2.6 10^3/ul (0.8-2.9); LYMPHOCYTES % 23.3 % (15.0-51.0); MEAN CORPUSCULAR HEMOGLOBIN 28.1 pg (29.0-33.0); MEAN CORPUSCULAR HGB CONC 33.5 g/dl (32.0-37.0); MEAN CORPUSCULAR VOLUME 83.9 fl (82.0-101.0); MEAN PLATELET VOLUME 8.7 fl (7.4-10.4); MONOCYTES % 9.1 % (0.0-11.0); NEUTROPHIL # 6.9 10^3/ul (1.6-7.5); NEUTROPHILS % 62.6 % (39.0-77.0); PLATELET COUNT 485 10^3/UL (140-440); RED BLOOD COUNT 3.46 10^6/ul (4.20-5.40); RED CELL DISTRIBUTION WIDTH 15.9 % (11.5-14.5)
[2016-10-09 07:43] LABS: POTASSIUM 4.5 mmol/L (3.5-5.1)
[2016-10-09 07:45] LABS: CREATININE 0.97 mg/dl (0.44-1.00)
[2016-10-09 07:46] LABS: CALCIUM 9.1 mg/dl (8.4-10.2)
[2016-10-09 07:48] LABS: CONDITION 1; LH ANALYZER COMMENTS 1
[2016-10-09 07:52] VITALS: BP 152/65; RESP 21
[2016-10-09] MEDS: LOSARTAN 50 MG TAB PO SCH (08:08)
[2016-10-09] MEDS: ASCORBIC ACID 500 MG TAB PO SCH (08:08)
[2016-10-09] MEDS: FERROUS SULFATE (EC) 325 MG TAB PO SCH (08:08)
[2016-10-09] MEDS: OXYCODONE/ACETAMINOPHEN (5/325) TAB PO PRN ×2 (08:08→20:09)
[2016-10-09] MEDS: LINAGLIPTIN 5 MG TABLET PO SCH (08:08)
[2016-10-09] MEDS: LACTOBACILLUS RHAMNOSUS CAP PO SCH ×2 (08:08→20:12)
[2016-10-09] MEDS: METHOCARBAMOL 750 MG TAB PO SCH ×3 (08:08→20:12)
[2016-10-09] MEDS: ASPIRIN (EC) 81 MG TAB PO SCH (08:08)
[2016-10-09] MEDS: ENOXAPARIN 40 MG/0.4 ML SYG SC SCH (08:12)
[2016-10-09] MEDS: INSULIN ASPART [NOVOLOG] 3 ML PEN SC SCH ×4 (08:12→20:28)
[2016-10-09 13:24] VITALS: BP 139/65; PULSE 89
--- NOTE | 2016-10-09 14:11 | PN ---
Date/Time of Note Date/Time of Note DATE: 10/09/16 TIME: 14:08 Assessment/Plan VTE Prophylaxis VTE Prophylaxis Intervention: LMWH Lines/Catheters IV Catheter Type (from Nrs): Saline Lock Assessment/Plan Chief Complaint/Hosp Course 1. Right foot cellulitis and gangrene of the right third toe s/p amputation of the toe- Improving - Podiatry and vascular surgeon consults appreciated - cont Jose Maria, We will follow up wound culture and treat accordingly. 2. Diabetes mellitus. Continue Lantus, insulin sliding scale and place the patient on a low carb diet. 3. History essential hypertension. Continue medical management. 4. Dyslipidemia. Continue statin. 5. Arthritis. Continue pain medication. This is likely muscular. Place patient on a heat pad and pain medication, started Ibuprofen as well 6. Anemia of chronic disease, stable -cont ferrous sulfate and will check Iron profile if truly chronic Dz then DC Iron PPx- Lovenox Problems: Subjective 24 Hr Interval Summary Musculoskeletal: back pain Exam/Review of Systems Vital Signs Vitals Vital Signs Date Time Temp Pulse Resp B/P Pulse Ox O2 Delivery O2 Flow Rate FiO2 10/09/16 13:24 89 139/65 10/09/16 07:52 98.1 21 98 10/06/16 15:15 Room Air Intake and Output 10/08/16 10/08/16 10/09/16 15:00 23:00 07:00 Intake Total 150 ml 680 ml Balance 150 ml 680 ml Exam Constitutional: alert, oriented Respiratory: clear to auscultation Cardiovascular: regular rate and rhythm Gastrointestinal: soft, No distended Musculoskeletal: No nl extremities to inspection Results Result Diagram: 10/09/16 0647 10/09/16 0647 Results 24 hrs Laboratory Tests Test 10/08/16 17:08 10/08/16 20:51 10/09/16 05:03 10/09/16 06:47 Bedside Glucose 135 232 H 145 Anion Gap 18 H Basophils # 0.1 Basophils % 0.6 Blood Morphology Comment Blood Urea Nitrogen 21 H Calcium Level 9.1 Carbon Dioxide Level 26 Chloride Level 99 Creatinine 0.97 Eosinophils # 0.5 Eosinophils % 4.4 Glucose Level 162 Hematocrit 29.0 L Hemoglobin 9.7 L Lymphocytes # 2.6 Lymphocytes % 23.3 Mean Corpuscular Hemoglobin 28.1 L Mean Corpuscular Hemoglobin Concent 33.5 Mean Corpuscular Volume 83.9 Mean Platelet Volume 8.7 Monocytes # 1.0 H Monocytes % 9.1 Neutrophils # 6.9 Neutrophils % 62.6 Nucleated Red Blood Cells # 0.0 Nucleated Red Blood Cells % 0.0 Platelet Count 485 H Potassium Level 4.5 Red Blood Count 3.46 L Red Cell Distribution Width 15.9 H Sodium Level 138 White Blood Count 11.0 #H Test 10/09/16 07:37 10/09/16 11:32 Bedside Glucose 187 273 H Medications Medications Current Medications Ondansetron HCl (Zofran Tab) 4 mg Q6H PRN PO NAUSEA AND/OR VOMITING Last administered on 10/08/16 08:45; Admin Dose 4 MG; Start 10/06/16 at 16:00 Acetaminophen (Tylenol Tab) 650 mg Q6H PRN PO PAIN LEVEL 1-3 OR FEVER Last administered on 10/07/16 03:39; Admin Dose 650 MG; Start 10/06/16 at 16:00 Acetaminophen (Tylenol Supp) 650 mg Q6H PRN [place] PAIN LEVEL 1-3 OR FEVER; Start 10/06/16 at 16:00 Oxycodone/ Acetaminophen (Percocet (5/ 325)) 1 tab Q6H PRN PO MODERATE PAIN LEVEL 4-6 Last administered on 10/09/16 08:08; Admin Dose 1 TAB; Start at 16:00 Morphine Sulfate (morphine) 2 mg Q4H PRN IV SEVERE PAIN LEVEL 7-10 Last administered on 10/07/16 13:57; Admin Dose 2 MG; Start 10/06/16 at 16:00 Docusate Sodium (Colace) 100 mg Q12H PRN PO CONSTIPATION; Start 10/06/16 at 16: 00 Bisacodyl (Dulcolax Supp) 10 mg DAILY PRN [place] CONSTIPATION; Start 10/06/16 at 16 :00 Zolpidem Tartrate (Ambien) 5 mg QHS PRN PO SLEEP; Start 10/06/16 at 16:00 Enoxaparin Sodium 40 mg 40 mg DAILY SC Last administered on 10/09/16 08:12; Admin Dose 40 MG; Start 10/07/16 at 09:00 Piperacillin Sod/ Tazobactam Sod (Zosyn 3.375gm/ 100 ml (Pmx)) 100 ml @ 25 mls/ hr TID@02,10,18 IVPB Last administered on 10/09/16 09:05; Admin Dose 25 MLS/HR ; Start 10/06/16 at 18:00 Aspirin (Halfprin) 162 mg DAILY PO Last administered on 10/09/16 08:08; Admin Dose 162 MG; Start 10/07/16 at 09:00 Hydralazine HCl (Apresoline) 25 mg Q8 PO Last administered on 10/09/16 13:24; Admin Dose 25 MG; Start 10/06/16 at 22:00 Insulin Glargine (Lantus) 15 unit QHS SC Last administered on 10/08/16 21:04; Admin Dose 15 UNIT; Start 10/06/16 at 21:00 Losartan Potassium (Cozaar) 100 mg DAILY PO Last administered on 10/09/16 08: 08; Admin Dose 100 MG; Start 10/07/16 at 09:00 Methocarbamol (Robaxin) 750 mg TID PO Last administered on 10/09/16 13:05; Admin Dose 750 MG; Start 10/06/16 at 21:00 Atorvastatin Calcium (Lipitor) 10 mg DAILY@21 PO Last administered on 20:53; Admin Dose 10 MG; Start 10/06/16 at 21:00 Linagliptin (Tradjenta) 5 mg DAILY PO Last administered on 10/09/16 08:08; Admin Dose 5 MG; Start 10/07/16 at 09:00 Ferrous Sulfate (Ferrous Sulfate (Ec)) 325 mg DAILY PO Last administered on 08:08; Admin Dose 325 MG; Start 10/08/16 at 09:00 Ascorbic Acid 500 mg 500 mg DAILY PO Last administered on 10/09/16 08:08; Admin Dose 500 MG; Start 10/08/16 at 09:00 Clindamycin HCl/ Dextrose (Cleocin 300 Mg/ D5W (Pmx)) 50 ml @ 100 mls/hr Q8 IVPB Last administered on 10/09/16 13:21; Admin Dose 100 MLS/HR; Start at 22:00 Lactobacillus Acidophilus/ Rhamnosus (Culturelle) 1 cap BID PO Last administered on 10/09/16 08:08; Admin Dose 1 CAP; Start 10/07/16 at 21:00 Baclofen (Lioresal) 5 mg TID PRN PO MUSCLE SPASMS Last administered on t 01:13; Admin Dose 5 MG; Start 10/08/16 at 19:00 Ibuprofen (Motrin) 400 mg Q4H PRN PO PAIN OR TEMP ABOVE 38C; Start 10/09/16 at 11:30 JUNG PADILLA Oct 09, 2016 14:11
[2016-10-09] MEDS ORDERED: MAGNESIUM SULFATE 2 GM/50 ML 50 ML IVPB ONE (14:30)
[2016-10-09] MEDS: IBUPROFEN 400 MG TAB PO PRN (14:56)
[2016-10-09 19:39] VITALS: BP 174/74; RESP 16
[2016-10-09] MEDS: ATORVASTATIN 10 MG TAB PO SCH (20:12)
[2016-10-09] MEDS: INSULIN GLARGINE [LANtus] 3 ML PEN SC SCH (20:15)
[2016-10-09 21:31] VITALS: BP 148/67; PULSE 78
--- NOTE | 2016-10-09 22:59 | PN ---
Date/Time of Note Date/Time of Note DATE: 10/09/16 TIME: 22:57 Assessment/Plan Lines/Catheters IV C[facility] Type (from [facility] Saline Lock Assessment/Plan Problems: (1) Cellulitis of right foot (2) Abscess of right foot (3) Diabetes mellitus with polyneuropathy Status: Chronic Qualifiers: Diabetes mellitus type: type 2 Qualified Code: E11.42 - Diabetic polyneuropathy associated with type 2 diabetes mellitus (4) Peripheral vascular disease Status: Chronic (5) Diabetes, polyneuropathy (6) Toe gangrene Assessment/Plan Bedside debridement of distal gangrene of her right foot toe was done. Subjective 24 Hr Interval Summary Patient was seen at bedside today. Patient reports no pain. Reports improvement. Denies fever or chills. Patient is on IV antibiotics. Constitutional: no complaints Pain Control: well controlled Exam/Review of Systems Vital Signs Vitals Vital Signs Date Time Temp Pulse Resp B/P Pulse Ox O2 Delivery O2 Flow Rate FiO2 10/15/16 08:07 98.0 80 18 136/64 97 Exam Free Text/Dictation In no acute distress. Right lower extremity edema is minimal. There is no erythema noted. Distal third toe gangrene continues in the distal lesion is very loose. I was able to remove the loose lesion. Bleeders were stopped with with compression. Dressing was applied. No other changes noted on examination. Results Result Diagram: 10/14/16 0531 ALEXANDREA HARTMAN DPM Oct 09, 2016 22:59
[2016-10-10] MEDS: PIPER-TAZO 3.375 GM IV (PMX) 100 ML IVPB SCH ×3 (01:49→17:37)
[2016-10-10] MEDS: CLINDAMYCIN 300 MG/D5W (PMX) 50 ML IVPB SCH (05:49)
[2016-10-10 06:03] VITALS: BP 177/78; PULSE 77
[2016-10-10 07:00] LABS: POTASSIUM 4.9 mmol/L (3.5-5.1)
[2016-10-10 07:02] LABS: CREATININE 1.14 mg/dl (0.44-1.00)
[2016-10-10 07:03] LABS: BASOPHIL # 0.1 10^3/ul (0.0-0.1); BASOPHILS % 0.7 % (0.0-2.0); CALCIUM 8.8 mg/dl (8.4-10.2); EOSINOPHILS # 0.6 10^3/ul (0.0-0.5); EOSINOPHILS % 7.1 % (0.0-7.0); HEMATOCRIT 26.6 % (37.0-47.0); LYMPHOCYTES # 2.8 10^3/ul (0.8-2.9); LYMPHOCYTES % 32.3 % (15.0-51.0); MEAN CORPUSCULAR HGB CONC 33.8 g/dl (32.0-37.0); MEAN CORPUSCULAR VOLUME 82.9 fl (82.0-101.0); MEAN PLATELET VOLUME 8.5 fl (7.4-10.4); MONOCYTE # 0.9 10^3/ul (0.3-0.9); MONOCYTES % 10.6 % (0.0-11.0); NEUTROPHIL # 4.3 10^3/ul (1.6-7.5); NEUTROPHILS % 49.3 % (39.0-77.0); PLATELET COUNT 507 10^3/UL (140-440); RED BLOOD COUNT 3.21 10^6/ul (4.20-5.40); RED CELL DISTRIBUTION WIDTH 16.1 % (11.5-14.5); UNCORRECTED WBC 8.8 10^3/ul (4.8-10.8); WHITE BLOOD COUNT 8.8 10^3/ul (4.8-10.8)
[2016-10-10 07:06] LABS: CONDITION 1; LH ANALYZER COMMENTS 1
[2016-10-10 07:17] LABS: IRON 41 ug/dl (35-150)
[2016-10-10 07:26] LABS: TOTAL IRON BINDING CAPACITY 203 ug/dl (241-421)
[2016-10-10] MEDS ORDERED: GLUCAGON 1 MG INJ IM PRN (07:30)
[2016-10-10] MEDS ORDERED: GLUCOSE GEL 15 GRAM TUBE PO PRN ×2 (07:30)
[2016-10-10] MEDS ORDERED: GLUCOSE GEL 15 GRAM TUBE BUCCAL PRN (07:30)
[2016-10-10] MEDS ORDERED: DEXTROSE 50% 50 ML SYRINGE IV PRN ×2 (07:30)
[2016-10-10 08:00] VITALS: BP 185/79; RESP 18
[2016-10-10] MEDS: LACTOBACILLUS RHAMNOSUS CAP PO SCH ×2 (08:08→20:06)
[2016-10-10] MEDS: METHOCARBAMOL 750 MG TAB PO SCH ×3 (08:08→20:06)
[2016-10-10] MEDS: IBUPROFEN 400 MG TAB PO PRN ×2 (08:08→20:12)
[2016-10-10] MEDS: FERROUS SULFATE (EC) 325 MG TAB PO SCH (08:08)
[2016-10-10] MEDS: ASPIRIN (EC) 81 MG TAB PO SCH (08:08)
[2016-10-10] MEDS: ASCORBIC ACID 500 MG TAB PO SCH (08:08)
[2016-10-10] MEDS: LOSARTAN 50 MG TAB PO SCH (08:08)
[2016-10-10] MEDS: LINAGLIPTIN 5 MG TABLET PO SCH (08:08)
[2016-10-10] MEDS: ENOXAPARIN 40 MG/0.4 ML SYG SC SCH (08:10)
[2016-10-10] MEDS: INSULIN ASPART [NOVOLOG] 3 ML PEN SC SCH ×4 (08:11→20:13)
--- NOTE | 2016-10-10 14:19 | PN ---
Date/Time of Note Date/Time of Note DATE: 10/10/16 TIME: 14:11 Assessment/Plan VTE Prophylaxis VTE Prophylaxis Intervention: LMWH Lines/Catheters IV Catheter Type (from Nrsg): Saline Lock Assessment/Plan Assessment/Plan 1. 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 Diabetes mellitus. Continue Lantus, insulin sliding scale and place the patient on a low carb diet. 3. History essential hypertension. Continue medical management. 4. Dyslipidemia. Continue statin. 5. Arthritis. Continue pain medication. This is likely muscular. Place patient on a heat pad and pain medication, started Ibuprofen as well 6. Anemia of chronic disease, stable 7. PPx- Lovenox Subjective 24 Hr Interval Summary Free Text/Dictation afebrile Exam/Review of Systems Vital Signs Vitals Vital Signs Date Time Temp Pulse Resp B/P Pulse Ox O2 Delivery O2 Flow Rate FiO2 10/10/16 08:00 98.1 75 18 185/79 95 10/06/16 15:15 Room Air Intake and Output 10/09/16 10/09/16 10/10/16 15:00 23:00 07:00 Intake Total 150 ml 1470 ml 630 ml Balance 150 ml 1470 ml 630 ml Exam Constitutional: alert, oriented, well developed Psych: nl mood/affect, no complaints Head: atraumatic, normocephalic Eyes: EOMI, PERRL, nl conjunctiva, nl lids ENMT: nl external ears & nose, nl lips & teeth, nl nasal mucosa & septum Neck: non-tender, supple Respiratory: clear to auscultation, normal air movement, No congested cough, No crackles/rales, No diminished breath sounds, No intercostal retraction, No labored breathing, No other, No respirations, No tactile fremitus, No wheezing Cardiovascular: nl pulses, regular rate and rhythm, No S3, No S4, No bruits, No diastolic murmur, No edema, No gallop, No irregular rhythm, No jugular venous distention (JVD), No murmurs/extra sounds, No other, No rub, No systolic murmur Gastrointestinal: nl liver, spleen, non-tender, soft, No ascites, No bowel sounds, No distended, No firm, No hepatomegaly, No mass , No other, No rebound or guarding, No splenomegaly, No surgical scars, No tender Extremities: normal pulses, other (right foot packed), No calf tenderness, No clubbing, No cyanosis, No edema, No palpable cord, No pitting pedal edema, No tenderness Neurological: RN COMMUNITY II-XII intact, nl mental status, nl speech, nl strength Skin: nl turgor Lymph: nl lymph nodes Results Result Diagram: 10/10/1652410/10/16 0525 Results 24 hrs Laboratory Tests Test 10/09/16 17:05 10/09/16 20:11 10/09/16 20:18 10/10/16 01:29 Bedside Glucose 144 311 H 295 H 180 Test 10/10/16 05:25 10/10/16 07:55 10/10/16 11:49 Anion Gap 16 Basophils # 0.1 Basophils % 0.7 Blood Morphology Comment Blood Urea Nitrogen 26 H Calcium Level 8.8 Carbon Dioxide Level 28 Chloride Level 99 Creatinine 1.14 H Eosinophils # 0.6 H Eosinophils % 7.1 H Glucose Level 205 Hematocrit 26.6 L Hemoglobin 9.0 L Iron Level 41 Lymphocytes # 2.8 Lymphocytes % 32.3 Magnesium Level 2.6 H Mean Corpuscular Hemoglobin 28.0 L Mean Corpuscular Hemoglobin Concent 33.8 Mean Corpuscular Volume 82.9 Mean Platelet Volume 8.5 Monocytes # 0.9 Monocytes % 10.6 Neutrophils # 4.3 Neutrophils % 49.3 Nucleated Red Blood Cells # 0.0 Nucleated Red Blood Cells % 0.0 Percent Iron Saturation 20 L Platelet Count 507 H Potassium Level 4.9 Red Blood Count 3.21 L Red Cell Distribution Width 16.1 H Sodium Level 138 Total Iron Binding Capacity 203 L White Blood Count 8.8 Bedside Glucose 204 299 H Medications Medications Current Medications Ondansetron HCl (Zofran Tab) 4 mg Q6H PRN PO NAUSEA AND/OR VOMITING Last administered on 10/08/16 08:45; Admin Dose 4 MG; Start 10/06/16 at 16:00 Acetaminophen (Tylenol Tab) 650 mg Q6H PRN PO PAIN LEVEL 1-3 OR FEVER Last administered on 10/07/16 03:39; Admin Dose 650 MG; Start 10/06/16 at 16:00 Acetaminophen (Tylenol Supp) 650 mg Q6H PRN GA PAIN LEVEL 1-3 OR FEVER; Start 10/06/16 at 16:00 Oxycodone/ Acetaminophen (Percocet (5/ 325)) 1 tab Q6H PRN PO MODERATE PAIN LEVEL 4-6 Last administered on 10/09/16 20:09; Admin Dose 1 TAB; Start at 16:00 Morphine Sulfate (morphine) 2 mg Q4H PRN IV SEVERE PAIN LEVEL 7-10 Last administered on 10/07/16 13:57; Admin Dose 2 MG; Start 10/06/16 at 16:00 Docusate Sodium (Colace) 100 mg Q12H PRN PO CONSTIPATION; Start 10/06/16 at 16: 00 Bisacodyl (Dulcolax Supp) 10 mg DAILY PRN GA CONSTIPATION; Start 10/06/16 at 16 :00 Zolpidem Tartrate (Ambien) 5 mg QHS PRN PO SLEEP; Start 10/06/16 at 16:00 Enoxaparin Sodium 40 mg 40 mg DAILY SC Last administered on 10/10/16 08:10; Admin Dose 40 MG; Start 10/07/16 at 09:00 Piperacillin Sod/ Tazobactam Sod (Zosyn 3.375gm/ 100 ml (Pmx)) 100 ml @ 25 mls/ hr TID@02,10,18 IVPB Last administered on 10/10/16 10:20; Admin Dose 25 MLS/HR ; Start 10/06/16 at 18:00 Aspirin (Halfprin) 162 mg DAILY PO Last administered on 10/10/16 08:08; Admin Dose 162 MG; Start 10/07/16 at 09:00 Hydralazine HCl (Apresoline) 25 mg Q8 PO Last administered on 10/10/16 05:53; Admin Dose 25 MG; Start 10/06/16 at 22:00 Insulin Glargine (Lantus) 15 unit QHS SC Last administered on 10/09/16 20:15; Admin Dose 15 UNIT; Start 10/06/16 at 21:00 Losartan Potassium (Cozaar) 100 mg DAILY PO Last administered on 10/10/16 08: 08; Admin Dose 100 MG; Start 10/07/16 at 09:00 Methocarbamol (Robaxin) 750 mg TID PO Last administered on 10/10/16 12:55; Admin Dose 750 MG; Start 10/06/16 at 21:00 Atorvastatin Calcium (Lipitor) 10 mg DAILY@21 PO Last administered on 20:12; Admin Dose 10 MG; Start 10/06/16 at 21:00 Linagliptin (Tradjenta) 5 mg DAILY PO Last administered on 10/10/16 08:08; Admin Dose 5 MG; Start 10/07/16 at 09:00 Ferrous Sulfate (Ferrous Sulfate (Ec)) 325 mg DAILY PO Last administered on 08:08; Admin Dose 325 MG; Start 10/08/16 at 09:00 Ascorbic Acid 500 mg 500 mg DAILY PO Last administered on 10/10/16 08:08; Admin Dose 500 MG; Start 10/08/16 at 09:00 Clindamycin HCl/ Dextrose (Cleocin 300 Mg/ D5W (Pmx)) 50 ml @ 100 mls/hr Q8 IVPB Last administered on 10/10/16 05:49; Admin Dose 100 MLS/HR; Start at 22:00 Lactobacillus Acidophilus/ Rhamnosus (Culturelle) 1 cap BID PO Last administered on 10/10/16 08:08; Admin Dose 1 CAP; Start 10/07/16 at 21:00 Baclofen (Lioresal) 5 mg TID PRN PO MUSCLE SPASMS Last administered on 01:13; Admin Dose 5 MG; Start 10/08/16 at 19:00 Ibuprofen (Motrin) 400 mg Q4H PRN PO PAIN OR TEMP ABOVE 38C Last administered on 10/10/16 08:08; Admin Dose 400 MG; Start 10/09/16 at 11:30 Miscellaneous Information 1 ea NOTE XX ; Start 10/10/16 at 07:30 Glucose (Glutose) 15 gm Q15M PRN PO DECREASED GLUCOSE; Start 10/10/16 at 07:30 Glucose (Glutose) 22.5 gm Q15M PRN PO DECREASED GLUCOSE; Start 10/10/16 at 07: 30 Dextrose (D50w Syringe) 25 ml Q15M PRN IV DECREASED GLUCOSE; Start 10/10/16 at 07:30 Dextrose (D50w Syringe) 50 ml Q15M PRN IV DECREASED GLUCOSE; Start 10/10/16 at 07:30 Glucagon (Glucagen) 1 mg Q15M PRN IM DECREASED GLUCOSE; Start 10/10/16 at 07:30 Glucose (Glutose) 15 gm Q15M PRN BUCCAL DECREASED GLUCOSE; Start 10/10/16 at 07 :30 CHELLE WADE MD Oct 10, 2016 14:19
[2016-10-10 15:28] VITALS: BP 186/84; PULSE 85
[2016-10-10] MEDS: LISINOPRIL 20 MG TAB PO SCH (15:50)
[2016-10-10] MEDS: OXYCODONE/ACETAMINOPHEN (5/325) TAB PO PRN (16:24)
[2016-10-10 19:39] VITALS: BP 131/63; PULSE 80; RESP 20
[2016-10-10] MEDS: ATORVASTATIN 10 MG TAB PO SCH (20:06)
[2016-10-10] MEDS: INSULIN GLARGINE [LANtus] 3 ML PEN SC SCH (20:14)
[2016-10-10 22:04] VITALS: BP 169/77; PULSE 78
[2016-10-11] VITALS (7 sets, daily range): BP systolic 119–191; BP diastolic 57–79; PULSE 73–106; RESP 18–20
[2016-10-11] MEDS: PIPER-TAZO 3.375 GM IV (PMX) 100 ML IVPB SCH ×3 (02:02→19:06)
[2016-10-11] MEDS: OXYCODONE/ACETAMINOPHEN (5/325) TAB PO PRN (02:07)
[2016-10-11 06:20] LABS: BASOPHILS % 0.4 % (0.0-2.0); EOSINOPHILS # 0.7 10^3/ul (0.0-0.5); EOSINOPHILS % 7.3 % (0.0-7.0); HEMATOCRIT 27.3 % (37.0-47.0); HEMOGLOBIN 9.3 g/dl (12.0-16.0); LYMPHOCYTES # 2.5 10^3/ul (0.8-2.9); LYMPHOCYTES % 27.8 % (15.0-51.0); MEAN CORPUSCULAR HEMOGLOBIN 28.2 pg (29.0-33.0); MEAN CORPUSCULAR HGB CONC 34.1 g/dl (32.0-37.0); MEAN CORPUSCULAR VOLUME 82.8 fl (82.0-101.0); MEAN PLATELET VOLUME 7.9 fl (7.4-10.4); MONOCYTE # 0.9 10^3/ul (0.3-0.9); MONOCYTES % 9.8 % (0.0-11.0); NEUTROPHILS % 54.7 % (39.0-77.0); PLATELET COUNT 544 10^3/UL (140-440); RED CELL DISTRIBUTION WIDTH 15.4 % (11.5-14.5); UNCORRECTED WBC 9.1 10^3/ul (4.8-10.8); WHITE BLOOD COUNT 9.1 10^3/ul (4.8-10.8)
[2016-10-11 06:21] LABS: CONDITION 1; LH ANALYZER COMMENTS 1
[2016-10-11 06:22] LABS: POTASSIUM 5.2 mmol/L (3.5-5.1)
[2016-10-11 06:24] LABS: CREATININE 0.85 mg/dl (0.44-1.00)
[2016-10-11 06:25] LABS: CALCIUM 8.5 mg/dl (8.4-10.2)
[2016-10-11] MEDS: IBUPROFEN 400 MG TAB PO PRN ×2 (06:37→23:37)
[2016-10-11] MEDS: ASCORBIC ACID 500 MG TAB PO SCH (08:44)
[2016-10-11] MEDS: LINAGLIPTIN 5 MG TABLET PO SCH (08:45)
[2016-10-11] MEDS: LACTOBACILLUS RHAMNOSUS CAP PO SCH ×2 (08:47→20:33)
[2016-10-11] MEDS: LISINOPRIL 20 MG TAB PO SCH (08:47)
[2016-10-11] MEDS: FERROUS SULFATE (EC) 325 MG TAB PO SCH (08:48)
[2016-10-11] MEDS: METHOCARBAMOL 750 MG TAB PO SCH ×3 (08:48→20:33)
[2016-10-11] MEDS: ASPIRIN (EC) 81 MG TAB PO SCH (08:48)
[2016-10-11] MEDS: ENOXAPARIN 40 MG/0.4 ML SYG SC SCH (08:50)
[2016-10-11] MEDS: INSULIN ASPART [NOVOLOG] 3 ML PEN SC SCH ×4 (08:51→20:37)
[2016-10-11] MEDS ORDERED: INSULIN GLARGINE [LANtus] 3 ML PEN SC ONE (12:30)
--- NOTE | 2016-10-11 14:23 | PN ---
Date/Time of Note Date/Time of Note DATE: 10/11/16 TIME: 14:14 Assessment/Plan VTE Prophylaxis VTE Prophylaxis Intervention: LMWH Lines/Catheters IV Catheter Type (from Nrsg): Saline Lock Assessment/Plan Assessment/Plan 1. 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 Diabetes mellitus. INCREASE Lantus, insulin sliding scale and place the patient on a low carb diet. 3. History essential hypertension. lisinopril, add norvasc. decreasse lisinoprilfollow up with K 4. Dyslipidemia. Continue statin. 5. Arthritis. Continue pain medication. This is likely muscular. Place patient on a heat pad and pain medication, started Ibuprofen as well 6. Anemia of chronic disease, stable 7. PPx- Lovenox Subjective 24 Hr Interval Summary Free Text/Dictation afebrile Exam/Review of Systems Vital Signs Vitals Vital Signs Date Time Temp Pulse Resp B/P Pulse Ox O2 Delivery O2 Flow Rate FiO2 10/11/16 09:18 77 148/78 10/11/16 08:26 97.7 18 97 10/10/16 19:39 Room Air Intake and Output 10/10/16 10/10/16 10/11/16 15:00 23:00 07:00 Intake Total 1020 ml 820 ml Balance 1020 ml 820 ml Exam Constitutional: alert, oriented, well developed Psych: nl mood/affect, no complaints Head: atraumatic, normocephalic Eyes: EOMI, PERRL, nl conjunctiva, nl lids ENMT: mucosa pink and moist, nl external ears & nose, nl lips & teeth, nl nasal mucosa & septum Neck: non-tender, supple Respiratory: clear to auscultation, normal air movement, No congested cough, No crackles/rales, No diminished breath sounds, No intercostal retraction, No labored breathing, No other, No respirations, No tactile fremitus, No wheezing Cardiovascular: nl pulses, regular rate and rhythm, No S3, No S4, No bruits, No diastolic murmur, No edema, No gallop, No irregular rhythm, No jugular venous distention (JVD), No murmurs/extra sounds, No other, No rub, No systolic murmur Gastrointestinal: nl liver, spleen, non-tender, soft, No ascites, No bowel sounds, No distended, No firm, No hepatomegaly, No mass , No other, No rebound or guarding, No splenomegaly, No surgical scars, No tender Musculoskeletal: nl extremities to inspection Extremities: normal pulses, other (right foot wound), No calf tenderness, No clubbing, No cyanosis, No edema, No palpable cord, No pitting pedal edema Results Result Diagram: 10/11/16 0544 10/11/16 0544 Results 24 hrs Laboratory Tests Test 10/10/16 17:06 10/10/16 20:04 10/11/16 02:18 10/11/16 05:44 Bedside Glucose 238 H 233 H 235 H Anion Gap 16 Basophils # 0.0 Basophils % 0.4 Blood Morphology Comment Blood Urea Nitrogen 23 H Calcium Level 8.5 Carbon Dioxide Level 25 Chloride Level 101 Creatinine 0.85 Eosinophils # 0.7 H Eosinophils % 7.3 H Glucose Level 217 Hematocrit 27.3 L Hemoglobin 9.3 L Lymphocytes # 2.5 Lymphocytes % 27.8 Mean Corpuscular Hemoglobin 28.2 L Mean Corpuscular Hemoglobin Concent 34.1 Mean Corpuscular Volume 82.8 Mean Platelet Volume 7.9 Monocytes # 0.9 Monocytes % 9.8 Neutrophils # 5.0 Neutrophils % 54.7 Nucleated Red Blood Cells # 0.0 Nucleated Red Blood Cells % 0.0 Platelet Count 544 H Potassium Level 5.2 H Red Blood Count 3.30 L Red Cell Distribution Width 15.4 H Sodium Level 137 White Blood Count 9.1 Test 10/11/16 08:02 10/11/16 12:22 Bedside Glucose 218 419 *H Medications Medications Current Medications Ondansetron HCl (Zofran Tab) 4 mg Q6H PRN PO NAUSEA AND/OR VOMITING Last administered on 10/08/16 08:45; Admin Dose 4 MG; Start 10/06/16 at 16:00 Acetaminophen (Tylenol Tab) 650 mg Q6H PRN PO PAIN LEVEL 1-3 OR FEVER Last administered on 10/07/16 03:39; Admin Dose 650 MG; Start 10/06/16 at 16:00 Acetaminophen (Tylenol Supp) 650 mg Q6H PRN SC PAIN LEVEL 1-3 OR FEVER; Start 10/06/16 at 16:00 Oxycodone/ Acetaminophen (Percocet (5/ 325)) 1 tab Q6H PRN PO MODERATE PAIN LEVEL 4-6 Last administered on 10/11/16 02:07; Admin Dose 1 TAB; Start at 16:00 Morphine Sulfate (morphine) 2 mg Q4H PRN IV SEVERE PAIN LEVEL 7-10 Last administered on 10/07/16 13:57; Admin Dose 2 MG; Start 10/06/16 at 16:00 Docusate Sodium (Colace) 100 mg Q12H PRN PO CONSTIPATION; Start 10/06/16 at 16: 00 Bisacodyl (Dulcolax Supp) 10 mg DAILY PRN SC CONSTIPATION; Start 10/06/16 at 16 :00 Zolpidem Tartrate (Ambien) 5 mg QHS PRN PO SLEEP; Start 10/06/16 at 16:00 Enoxaparin Sodium 40 mg 40 mg DAILY SC Last administered on 10/11/16 08:50; Admin Dose 40 MG; Start 10/07/16 at 09:00 Piperacillin Sod/ Tazobactam Sod (Zosyn 3.375gm/ 100 ml (Pmx)) 100 ml @ 25 mls/ hr TID@02,10,18 IVPB Last administered on 10/11/16 10:59; Admin Dose 25 MLS/HR ; Start 10/06/16 at 18:00 Aspirin (Halfprin) 162 mg DAILY PO Last administered on 10/11/16 08:48; Admin Dose 162 MG; Start 10/07/16 at 09:00 Hydralazine HCl (Apresoline) 25 mg Q8 PO Last administered on 10/11/16 13:27; Admin Dose 25 MG; Start 10/06/16 at 22:00 Methocarbamol (Robaxin) 750 mg TID PO Last administered on 10/11/16 13:26; Admin Dose 750 MG; Start 10/06/16 at 21:00 Atorvastatin Calcium (Lipitor) 10 mg DAILY@21 PO Last administered on 20:06; Admin Dose 10 MG; Start 10/06/16 at 21:00 Linagliptin (Tradjenta) 5 mg DAILY PO Last administered on 10/11/16 08:45; Admin Dose 5 MG; Start 10/07/16 at 09:00 Ferrous Sulfate (Ferrous Sulfate (Ec)) 325 mg DAILY PO Last administered on 08:48; Admin Dose 325 MG; Start 10/08/16 at 09:00 Ascorbic Acid (Vitamin C) 500 mg DAILY PO Last administered on 10/11/16 08:44 ; Admin Dose 500 MG; Start 10/08/16 at 09:00 Lactobacillus Acidophilus/ Rhamnosus (Culturelle) 1 cap BID PO Last administered on 10/11/16 08:47; Admin Dose 1 CAP; Start 10/07/16 at 21:00 Baclofen (Lioresal) 5 mg TID PRN PO MUSCLE SPASMS Last administered on 01:13; Admin Dose 5 MG; Start 10/08/16 at 19:00 Ibuprofen (Motrin) 400 mg Q4H PRN PO PAIN OR TEMP ABOVE 38C Last administered on 10/11/16 06:37; Admin Dose 400 MG; Start 10/09/16 at 11:30 Miscellaneous Information 1 ea NOTE XX ; Start 10/10/16 at 07:30 Glucose (Glutose) 15 gm Q15M PRN PO DECREASED GLUCOSE; Start 10/10/16 at 07:30 Glucose (Glutose) 22.5 gm Q15M PRN PO DECREASED GLUCOSE; Start 10/10/16 at 07: 30 Dextrose (D50w Syringe) 25 ml Q15M PRN IV DECREASED GLUCOSE; Start 10/10/16 at 07:30 Dextrose (D50w Syringe) 50 ml Q15M PRN IV DECREASED GLUCOSE; Start 10/10/16 at 07:30 Glucagon (Glucagen) 1 mg Q15M PRN IM DECREASED GLUCOSE; Start 10/10/16 at 07:30 Glucose (Glutose) 15 gm Q15M PRN BUCCAL DECREASED GLUCOSE; Start 10/10/16 at 07 :30 Insulin Glargine (Lantus) 20 unit QHS SC Last administered on 10/10/16 20:14; Admin Dose 20 UNIT; Start 10/10/16 at 21:00 Lisinopril (Zestril) 40 mg DAILY PO Last administered on 10/11/16 08:47; Admin Dose 40 MG; Start 10/10/16 at 14:30 CHELLE WADE MD Oct 11, 2016 14:23
[2016-10-11] MEDS ORDERED: AMLODIPINE 10 MG TAB GTB SCH (14:30)
[2016-10-11] MEDS: AMLODIPINE 10 MG TAB PO SCH (16:12)
[2016-10-11] MEDS ORDERED: hydrALAzine 20 MG INJ IV PRN (20:00)
[2016-10-11] MEDS: ATORVASTATIN 10 MG TAB PO SCH (20:33)
[2016-10-11] MEDS: INSULIN GLARGINE [LANtus] 3 ML PEN SC SCH (20:38)
[2016-10-12] MEDS: PIPER-TAZO 3.375 GM IV (PMX) 100 ML IVPB SCH ×3 (02:38→17:37)
[2016-10-12] MEDS: IBUPROFEN 400 MG TAB PO PRN ×2 (05:48→21:08)
[2016-10-12 06:11] LABS: POTASSIUM 4.9 mmol/L (3.5-5.1)
[2016-10-12 06:13] LABS: CREATININE 0.97 mg/dl (0.44-1.00)
[2016-10-12 06:14] LABS: CALCIUM 9.1 mg/dl (8.4-10.2)
[2016-10-12 07:49] VITALS: BP 133/63; RESP 18
[2016-10-12] MEDS: FERROUS SULFATE (EC) 325 MG TAB PO SCH (08:53)
[2016-10-12] MEDS: ENOXAPARIN 40 MG/0.4 ML SYG SC SCH (08:54)
[2016-10-12] MEDS: INSULIN ASPART [NOVOLOG] 3 ML PEN SC SCH ×4 (08:54→21:00)
[2016-10-12] MEDS ORDERED: AMLODIPINE 10 MG TAB PO SCH (09:00)
[2016-10-12] MEDS: ASPIRIN (EC) 81 MG TAB PO SCH (10:54)
[2016-10-12] MEDS: LISINOPRIL 20 MG TAB PO SCH (10:55)
[2016-10-12] MEDS: ASCORBIC ACID 500 MG TAB PO SCH (10:55)
[2016-10-12] MEDS: LINAGLIPTIN 5 MG TABLET PO SCH (10:55)
[2016-10-12] MEDS: AMLODIPINE 10 MG TAB PO SCH (10:55)
[2016-10-12] MEDS: LACTOBACILLUS RHAMNOSUS CAP PO SCH ×2 (10:56→20:58)
[2016-10-12] MEDS: METHOCARBAMOL 750 MG TAB PO SCH ×3 (11:51→20:58)
--- NOTE | 2016-10-12 15:07 | DS ---
Date/Time of Note Date/Time of Note DATE: 10/12/16 TIME: 14:57 Discharge Summary Admission/Discharge Info Admit Date/Time Oct 06, 2016 at 13:38 Discharge Date/Time Final Diagnosis 1. Right foot cellulitis and gangrene of the right third toe s/p debridement, augmentin, follow up with wound care and podiatry 2. Diabetes mellitus. stable, follow up with PCP 3. History essential hypertension. stable, resume home medications and follow up with PCP 4. Dyslipidemia. Continue statin. 5. Arthritis. Continue pain medication. 6. Anemia of chronic disease, stable Patient Condition: Stable Hospital Course This is a very pleasant 61-year-old female who is known to me from her prior hospitalization with a past medical history of right foot cellulitis and amputation of the right 4th toe, right third toe debridement x2, diabetes mellitus type 2, recent superficial femoral artery bypass, hypertension, dyslipidemia, arthritis, anemia of chronic disease, rhabdomyolysis, who was seen and evaluated at [facility] by Dr. Samuel Villanueva, podiatry today and was found to have worsening of her right foot cellulitis and has been admitted to [facility] for further evaluation and treatment. The patient denies any chest pain, shortness of breath, nausea, vomiting and diarrhea. No headache , dizziness, lightheadedness. No change in visual acuity, diplopia, photophobia. Positive for neck pain, no restricted range of motion in upper and lower extremities. Positive for erythema and bleeding from her right foot at the surgical site. Otherwise the 12 review of systems has been found to be negative. Patient had bed side gangrenous toe. Patient has been afebrile. No leukocytosis. Patient will be discharged home with home wound care and follow up with crime analyst outpatient. Home Meds Active Scripts Hydrocodone/Acetaminophen ([place] 5-325 Tablet) 1 Each Tablet, 1 TAB PO Q6H Y for PAIN, #20 TAB Prov:LIZ AMBRIZ. DO 10/02/16 Methocarbamol* (Robaxin*) 750 Mg Tablet, 750 MG PO TID, #14 TAB Prov:LEANDRA AMBRIZS A. DO 10/02/16 Ibuprofen* (Motrin*) 600 Mg Tab, 600 MG PO Q8, #30 TAB Prov:LIZ AMBRIZ DO 10/02/16 Reported Medications Aspirin* (Aspirin* EC) 81 Mg Tablet.dr, 162 MG PO DAILY, TAB 10/01/16 Sitagliptin Phos/Metformin HCl (Janumet 50-1,000 mg Tablet) 1 Each Tablet, 1 EACH PO BID, TAB 10/01/16 Losartan Potassium* (Losartan Potassium*) 100 Mg Tablet, 100 MG PO DAILY, TAB 10/01/16 Pravastatin Sodium* (Pravastatin Sodium*) 10 Mg Tablet, 10 MG PO DAILY, TAB 10/01/16 Hydralazine Hcl* (Hydralazine Hcl*) 25 Mg Tab, 25 MG PO Q8, #90 TAB 10/01/16 Insulin Glargine* (Lantus*) 100 Unit/Ml Soln, 17 UNIT SC QHS, #1 VIAL 10/01/16 Follow-up Plan Dr. Villanueva in one week Home health for wound care PCP one week Pending Labs Laboratory Tests Test 10/11/16 17:06 10/11/16 20:17 10/12/16 05:21 10/12/16 05:40 Bedside Glucose 333mg/dL (70-220) 284mg/dL (70-220) 118mg/dL (70-220) Anion Gap 17 (8-16) Blood Urea Nitrogen 21mg/dl (7-20) Calcium Level 9.1mg/dl (8.4-10.2) Carbon Dioxide Level 26mmol/L (21-31) Chloride Level 101mmol/L (97-110) Creatinine 0.97mg/dl (0.44-1.00) Glucose Level 119mg/dl (70-220) Potassium Level 4.9mmol/L (3.5-5.1) Sodium Level 139mmol/L (135-144) Test 10/12/16 08:39 10/12/16 11:48 Bedside Glucose 141mg/dL (70-220) 240mg/dL (70-220) CHELLE WADE MD Oct 12, 2016 15:07
[2016-10-12 19:34] VITALS: BP 142/63; RESP 16
--- NOTE | 2016-10-12 20:14 | RADRPT ---
PROCEDURE: MR Foot. CLINICAL INDICATION: Cellulitis. History of fourth through amputation. Recent femoral artery byp ass. Possible osteomyelitis. TECHNIQUE: 1.5 Abigail scanner: Sagittal T1/inversion recovery, coronal T1/proton-density fat satura tion, axial T1/proton-density fat saturation. COMPARISON: Right foot x-ray 10/06/2016 FINDINGS: Osseous structures: The examination concentrate some the midfoot and forefoot and there is preserve d signal intensity within the visualize navicular, cuboid and cuneiforms, at most there is mild dege nerative signal at the articular surfaces of the middle and the lateral cuneiform with the metatarsa l bases. The metatarsals maintain normal signal intensity without bone marrow edema. There is abno rmal low signal intensity diffusely involving the fifth distal phalanx on the T1-weighted images cor responding to bony irregularity on the x-ray. There is also suggestion of bone marrow edema within the head of the fifth proximal phalanx. The base of the fifth proximal phalanx is intact. The jhonatan ining base of the fourth proximal phalanx has a sharp margin and no evidence of bone marrow edema. There is questionable periosteal edema involving the proximal phalanx of the third toe concerning fo r a periostitis and questionable early osteomyelitis in this location. The great toe and second digit are unremarkable. Soft tissues: There is skin thickening and ulceration in the forefoot laterally adjacent to the thi rd, fourth and fifth digits with underlying subcutaneous edema along both the dorsal and plantar asp ects consistent with cellulitis. There is no finding to suggest an abscess however. The underlying tendinous and ligamentous structures appear intact. The intrinsic musculature of the foot shows no evidence of myositis. RPTAT:HJJR IMPRESSION: 1. Abnormal signal within the distal phalanx of the right fifth toe with extension across the interp halangeal joint into the head of the fifth proximal phalanx consistent with osteomyelitis and surrou nding cellulitis until proven otherwise. This corresponds to some bony irregularity on the x-ray of 10/06/2016. 2. Equivocal additional periostitis and changes of early osteomyelitis involving the proximal phalan x of the third toe. 3. Amputation of the fourth toe with the remaining proximal phalangeal base showing no evidence of e maria e to suggest osteomyelitis in this location. 4. Cellulitis changes of the lateral forefoot without evidence of abscess. Karlo Hugo Physician Date Time Electronically viewed and signed by Karlo Hugo Physician on 10/12/2016 20:14 JR/
[2016-10-12] MEDS: ATORVASTATIN 10 MG TAB PO SCH (20:58)
[2016-10-12] MEDS: INSULIN GLARGINE [LANtus] 3 ML PEN SC SCH (20:59)
[2016-10-13] MEDS: PIPER-TAZO 3.375 GM IV (PMX) 100 ML IVPB SCH ×3 (01:41→18:23)
[2016-10-13 07:32] VITALS: BP 138/62; RESP 20
[2016-10-13] MEDS: INSULIN ASPART [NOVOLOG] 3 ML PEN SC SCH ×4 (08:00→21:02)
[2016-10-13] MEDS: ASCORBIC ACID 500 MG TAB PO SCH (08:14)
[2016-10-13] MEDS: LACTOBACILLUS RHAMNOSUS CAP PO SCH ×2 (08:15→20:56)
[2016-10-13] MEDS: LISINOPRIL 20 MG TAB PO SCH (08:15)
[2016-10-13] MEDS: FERROUS SULFATE (EC) 325 MG TAB PO SCH (08:15)
[2016-10-13] MEDS: AMLODIPINE 10 MG TAB PO SCH (08:15)
[2016-10-13] MEDS: LINAGLIPTIN 5 MG TABLET PO SCH (08:15)
[2016-10-13] MEDS: ASPIRIN (EC) 81 MG TAB PO SCH (08:16)
[2016-10-13] MEDS: ENOXAPARIN 40 MG/0.4 ML SYG SC SCH (08:17)
[2016-10-13] MEDS: METHOCARBAMOL 750 MG TAB PO SCH ×3 (09:32→20:57)
[2016-10-13] MEDS: OXYCODONE/ACETAMINOPHEN (5/325) TAB PO PRN ×2 (10:46→18:23)
[2016-10-13 12:04] VITALS: BP 138/62; PULSE 78; RESP 20
--- NOTE | 2016-10-13 13:20 | PN ---
Date/Time of Note Date/Time of Note DATE: 10/13/16 TIME: 13:16 Assessment/Plan VTE Prophylaxis VTE Prophylaxis Intervention: LMWH Assessment/Plan Chief Complaint/Hosp Course This is a very pleasant 61-year-old female who is known to me from her prior hospitalization with a past medical history of right foot cellulitis and amputation of the right 4th toe, right third toe debridement x2, diabetes mellitus type 2, recent superficial femoral artery bypass, hypertension, dyslipidemia, arthritis, anemia of chronic disease, rhabdomyolysis, who was seen and evaluated at [facility] by Dr. Samuel Villanueva, podiatry today and was found to have worsening of her right foot cellulitis and has been admitted to [facility] for further evaluation and treatment. The patient denies any chest pain, shortness of breath, nausea, vomiting and diarrhea. No headache , dizziness, lightheadedness. No change in visual acuity, diplopia, photophobia. Positive for neck pain, no restricted range of motion in upper and lower extremities. Positive for erythema and bleeding from her right foot at the surgical site. Otherwise the 12 review of systems has been found to be negative. Patient had bed side gangrenous toe. Patient has been afebrile. No leukocytosis. Patient will be discharged home with home wound care and follow up with [employer] outpatient. Problems: Assessment/Plan 1. Right foot cellulitis and osteomyelitis of 3rd, 4th, and 5th toes, ID for outpatient antibiotics 2. Diabetes mellitus. stable, follow up with PCP 3. History essential hypertension. stable, resume home medications and follow up with PCP 4. Dyslipidemia. Continue statin. 5. Arthritis. Continue pain medication. 6. Anemia of chronic disease, stable 7. DVT prophylaxis: lovenox Subjective 24 Hr Interval Summary Free Text/Dictation afebrile Exam/Review of Systems Vital Signs Vitals Vital Signs Date Time Temp Pulse Resp B/P Pulse Ox O2 Delivery O2 Flow Rate FiO2 10/13/16 12:04 98.1 78 20 138/62 Room Air 10/13/16 07:32 97 Intake and Output 10/12/16 10/12/16 10/13/16 15:00 23:00 07:00 Intake Total 100 ml 125 ml 350 ml Balance 100 ml 125 ml 350 ml Exam Constitutional: alert, oriented, well developed Psych: nl mood/affect, no complaints Head: atraumatic, normocephalic Eyes: EOMI, PERRL, nl conjunctiva, nl lids ENMT: nl external ears & nose, nl lips & teeth, nl nasal mucosa & septum Neck: non-tender, supple Respiratory: clear to auscultation, normal air movement, No congested cough, No crackles/rales, No diminished breath sounds, No intercostal retraction, No labored breathing, No other, No respirations, No tactile fremitus, No wheezing Cardiovascular: nl pulses, regular rate and rhythm, No S3, No S4, No bruits, No diastolic murmur, No edema, No gallop, No irregular rhythm, No jugular venous distention (JVD), No murmurs/extra sounds, No other, No rub, No systolic murmur Gastrointestinal: nl liver, spleen, non-tender, soft, No ascites, No bowel sounds, No distended, No firm, No hepatomegaly, No mass , No other, No rebound or guarding, No splenomegaly, No surgical scars, No tender Musculoskeletal: nl extremities to inspection Neurological: ROLL SCALE MAN II-XII intact, nl mental status, nl speech, nl strength Skin: nl turgor, rash or lesions Lymph: nl lymph nodes Results Result Diagram: 10/11/16 0544 10/12/16 0521 Results 24 hrs Laboratory Tests Test 10/12/16 17:40 10/12/16 20:19 10/13/16 01:46 10/13/16 07:50 Bedside Glucose 151 270 H 82 100 Test 10/13/16 11:59 Bedside Glucose 228 H Medications Medications Current Medications Ondansetron HCl (Zofran Tab) 4 mg Q6H PRN PO NAUSEA AND/OR VOMITING Last administered on 10/08/16 08:45; Admin Dose 4 MG; Start 10/06/16 at 16:00 Acetaminophen (Tylenol Tab) 650 mg Q6H PRN PO PAIN LEVEL 1-3 OR FEVER Last administered on 10/07/16 03:39; Admin Dose 650 MG; Start 10/06/16 at 16:00 Acetaminophen (Tylenol Supp) 650 mg Q6H PRN NE PAIN LEVEL 1-3 OR FEVER; Start 10/06/16 at 16:00 Oxycodone/ Acetaminophen (Percocet (5/ 325)) 1 tab Q6H PRN PO MODERATE PAIN LEVEL 4-6 Last administered on 10/13/16 10:46; Admin Dose 1 TAB; Start at 16:00 Morphine Sulfate (morphine) 2 mg Q4H PRN IV SEVERE PAIN LEVEL 7-10 Last administered on 10/07/16 13:57; Admin Dose 2 MG; Start 10/06/16 at 16:00 Docusate Sodium (Colace) 100 mg Q12H PRN PO CONSTIPATION; Start 10/06/16 at 16: 00 Bisacodyl (Dulcolax Supp) 10 mg DAILY PRN NE CONSTIPATION; Start 10/06/16 at 16 :00 Zolpidem Tartrate (Ambien) 5 mg QHS PRN PO SLEEP; Start 10/06/16 at 16:00 Enoxaparin Sodium 40 mg 40 mg DAILY SC Last administered on 10/13/16 08:17; Admin Dose 40 MG; Start 10/07/16 at 09:00 Piperacillin Sod/ Tazobactam Sod (Zosyn 3.375gm/ 100 ml (Pmx)) 100 ml @ 25 mls/ hr TID@02,10,18 IVPB Last administered on 10/13/16 09:32; Admin Dose 25 MLS/HR ; Start 10/06/16 at 18:00 Aspirin (Halfprin) 162 mg DAILY PO Last administered on 10/13/16 08:16; Admin Dose 162 MG; Start 10/07/16 at 09:00 Methocarbamol (Robaxin) 750 mg TID PO Last administered on 10/13/16 13:00; Admin Dose 750 MG; Start 10/06/16 at 21:00 Atorvastatin Calcium (Lipitor) 10 mg DAILY@21 PO Last administered on 20:58; Admin Dose 10 MG; Start 10/06/16 at 21:00 Linagliptin (Tradjenta) 5 mg DAILY PO Last administered on 10/13/16 08:15; Admin Dose 5 MG; Start 10/07/16 at 09:00 Ferrous Sulfate (Ferrous Sulfate (Ec)) 325 mg DAILY PO Last administered on 08:15; Admin Dose 325 MG; Start 10/08/16 at 09:00 Ascorbic Acid (Vitamin C) 500 mg DAILY PO Last administered on 10/13/16 08:14 ; Admin Dose 500 MG; Start 10/08/16 at 09:00 Lactobacillus Acidophilus/ Rhamnosus (Culturelle) 1 cap BID PO Last administered on 10/13/16 08:15; Admin Dose 1 CAP; Start 10/07/16 at 21:00 Baclofen (Lioresal) 5 mg TID PRN PO MUSCLE SPASMS Last administered on 01:13; Admin Dose 5 MG; Start 10/08/16 at 19:00 Miscellaneous Information 1 ea NOTE XX ; Start 10/10/16 at 07:30 Glucose (Glutose) 15 gm Q15M PRN PO DECREASED GLUCOSE; Start 10/10/16 at 07:30 Glucose (Glutose) 22.5 gm Q15M PRN PO DECREASED GLUCOSE; Start 10/10/16 at 07: 30 Dextrose (D50w Syringe) 25 ml Q15M PRN IV DECREASED GLUCOSE; Start 10/10/16 at 07:30 Dextrose (D50w Syringe) 50 ml Q15M PRN IV DECREASED GLUCOSE; Start 10/10/16 at 07:30 Glucagon (Glucagen) 1 mg Q15M PRN IM DECREASED GLUCOSE; Start 10/10/16 at 07:30 Glucose (Glutose) 15 gm Q15M PRN BUCCAL DECREASED GLUCOSE; Start 10/10/16 at 07 :30 Insulin Glargine (Lantus) 20 unit QHS SC Last administered on 10/12/16 20:59; Admin Dose 20 UNIT; Start 10/10/16 at 21:00 Lisinopril (Zestril) 20 mg DAILY PO Last administered on 10/13/16 08:15; Admin Dose 20 MG; Start 10/12/16 at 09:00 Amlodipine Besylate (Norvasc) 10 mg DAILY PO Last administered on 10/13/16 08: 15; Admin Dose 10 MG; Start 10/11/16 at 17:00 Hydralazine HCl (Apresoline) 10 mg Q6H PRN IV ELEVATED BLOOD PRESSURE Last administered on 10/11/16 20:33; Admin Dose 10 MG; Start 10/11/16 at 20:00 Ibuprofen (Motrin) 400 mg Q4H PRN PO PAIN OR TEMP ABOVE 38C Last administered on 10/12/16 21:08; Admin Dose 400 MG; Start 10/11/16 at 22:00 CHELLE WADE MD Oct 13, 2016 13:20
[2016-10-13] MEDS ORDERED: VANCOMYCIN IV PER PHARMACY XX SCH (17:30)
--- NOTE | 2016-10-13 17:42 | CONS ---
DATE OF ADMISSION: 10/06/2016 DATE OF CONSULTATION: 10/13/2016 TYPE OF CONSULTATION: Infectious Disease. REASON FOR CONSULTATION: Antibiotic management. HISTORY OF PRESENT ILLNESS: 1. Myriam Butt is a 61-year-old female who comes in with right foot cellulitis and bleeding. The patient is a pleasant 61-year-old female who comes in with a past medical history of right foot cindy lulitis and amputation of the right fourth toe, right third toe debridement x2. 2. Diabetes mellitus. 3. Recent superficial femoral artery bypass. 4. Hypertension 5. Dyslipidemia. 6. Arthritis. 7. Anemia of chronic disease. 8. Rhabdomyolysis. The patient is seen by Dr. Samuel Villanueva of podiatry and he noted worsening of t he right foot cellulitis. She was admitted to [facility] for further evaluation. She has been followed by Dr. Puga as well. On admission, she had right foot cellulitis and gangrene of the right third toe. Patient was started on Zosyn. Blood cultures so far are negative from the , white count was 9.1. On the , H and H 9.3 and 27.3, platelet count of 544,000. BUN and cre atinine is 21/0.97, glucose of 240. An MRI of the foot shows abnormal signal within the distal phal anx of the right fifth toe with extension across the interphalangeal joint into the head of the 5th proximal phalanx consistent with osteomyelitis and surrounding cellulitis until proven otherwise. T his corresponds to some bony irregularity on the x-ray of 10/06/2016. Equivocal additional periosti tis and changes of early osteomyelitis involving the proximal phalanx and third toe and amputation o f the fourth toe. The remaining proximal phalangeal bases show no evidence of edema to suggest oste omyelitis at this location. Cellulitic changes of the lateral forefoot without evidence of abscess. The patient is currently on Zosyn alone. PAST MEDICAL HISTORY: Operations as outlined. FAMILY HISTORY: Noncontributory. SOCIAL HISTORY: She does not smoke, drink or abuse drugs. ALLERGIES: NONE TO PENICILLIN, SULFA OR FOODS. MEDICATIONS: Per chart. REVIEW OF SYSTEMS: As per HPI. PHYSICAL EXAMINATION: GENERAL: The patient is a well-developed, well-nourished female who is alert, responsive, in no acu te distress. VITAL SIGNS: Stable. She is afebrile. SKIN: Without generalized rash. HEENT: Within normal limits. NECK: Supple. LYMPH NODES: None palpable. CHEST: Decreased breath sounds at the bases. HEART: Without murmur or gallop. ABDOMEN: Soft, nontender, without organosplenomegaly or masses. EXTREMITIES: Without cyanosis, clubbing, or edema. Right lower extremity has erythema from the med ial part of the blackwell on the anterior tibia to the right foot. There is some bleeding of the lower e xtremities. IMPRESSION AND PLAN: The patient has right foot cellulitis with gangrenous changes of the right thi rd toe. She was seen by Dr. Puga on the and he noted bilateral lower extremity atheroscle rosis, right lower extremity gangrene and diabetic foot. She had a bypass that is patent and circul ation is adequate. Continue the antibiotics for 14 days for possible third tip of the toe amputatio n. Optimize vascular status with blood pressure diet and exercise and antiplatelets. Today right f oot cellulitis and osteomyelitis of the fourth, 3rd, 4th and 5th toe. We will add vancomycin to her regimen since she obviously, aside from gangrenous toe, has osteomyelitis of the 3rd, 4th and 5th t oes. I will dictate my findings to the hospitalist and to Dr. Villanueva and Dr. Puga. . Dictated By: CHRISTI BARRETT MD, JD/YOAV Conf#: [id number] DID#: [id number]
[2016-10-13] MEDS ORDERED: VANCOMYCIN 1.5 GM in SOD CHLORIDE 0.9% 250 ML IVPB SCH (18:30)
[2016-10-13 20:02] VITALS: BP 163/70; RESP 19
--- NOTE | 2016-10-13 20:46 | PN ---
Date/Time of Note Date/Time of Note DATE: 10/13/16 TIME: 20:46 Assessment/Plan Assessment/Plan Problems: (1) Toe gangrene Comment: Continue daily dressing change. At this time, patient may be discharged as per foot and ankle surgery and follow-up in the clinic. Continue IV antibiotics for now. (2) Non-pressure chronic ulcer of other part of right foot with necrosis of bone (3) Osteomyelitis of foot, right, acute Status: Acute (4) Diabetes mellitus with polyneuropathy Status: Chronic Qualifiers: Diabetes mellitus type: type 2 Qualified Code: E11.42 - Diabetic polyneuropathy associated with type 2 diabetes mellitus Subjective 24 Hr Interval Summary Patient was seen at bedside. Reports no pain today. Denies fever and chills. Bandages are being changed as per patient. Constitutional: no complaints Pain Control: well controlled Exam/Review of Systems Vital Signs Vitals Vital Signs Date Time Temp Pulse Resp B/P Pulse Ox O2 Delivery O2 Flow Rate FiO2 10/15/16 08:07 98.0 80 18 136/64 97 Exam Free Text/Dictation Patient is in no acute distress laying supine in bed. Right lower extremity edema is decreased. There is no erythema. Nontender to palpation. Status post extraction of gangrenous distal right third toe with healing wound. Status post previous right fourth toe amputation with healing base. There is no pus and no bleeding noted. No erythema present. No other changes noted on examination today. Results Result Diagram: 10/14/16 0531 ALEXANDREA HARTMAN DPM Oct 13, 2016 20:46
[2016-10-13] MEDS: ATORVASTATIN 10 MG TAB PO SCH (20:57)
[2016-10-13] MEDS: INSULIN GLARGINE [LANtus] 3 ML PEN SC SCH (21:01)
[2016-10-14] MEDS: PIPER-TAZO 3.375 GM IV (PMX) 100 ML IVPB SCH ×2 (02:26→09:57)
[2016-10-14 06:15] LABS: CREATININE 0.79 mg/dl (0.44-1.00)
[2016-10-14] MEDS: INSULIN ASPART [NOVOLOG] 3 ML PEN SC SCH ×4 (07:51→20:40)
[2016-10-14] MEDS: ENOXAPARIN 40 MG/0.4 ML SYG SC SCH (08:15)
[2016-10-14] MEDS: AMLODIPINE 10 MG TAB PO SCH (08:16)
[2016-10-14] MEDS: METHOCARBAMOL 750 MG TAB PO SCH ×3 (08:16→20:40)
[2016-10-14] MEDS: ASPIRIN (EC) 81 MG TAB PO SCH (08:16)
[2016-10-14] MEDS: FERROUS SULFATE (EC) 325 MG TAB PO SCH (08:17)
[2016-10-14] MEDS: LISINOPRIL 20 MG TAB PO SCH (08:17)
[2016-10-14] MEDS: ASCORBIC ACID 500 MG TAB PO SCH (08:17)
[2016-10-14] MEDS: LINAGLIPTIN 5 MG TABLET PO SCH (08:17)
[2016-10-14 08:21] VITALS: BP 171/97; RESP 18
[2016-10-14] MEDS: LACTOBACILLUS RHAMNOSUS CAP PO SCH ×2 (08:22→20:40)
[2016-10-14] MEDS: OXYCODONE/ACETAMINOPHEN (5/325) TAB PO PRN ×2 (08:42→17:36)
[2016-10-14] MEDS: BACLOFEN 10 MG TAB PO PRN (08:42)
[2016-10-14] MEDS ORDERED: VANCOMYCIN 500MG/NS (PMX) 100 ML IVPB SCH (10:30)
[2016-10-14 12:39] VITALS: BP 160/73
[2016-10-14] MEDS: IBUPROFEN 400 MG TAB PO PRN (12:43)
--- NOTE | 2016-10-14 13:18 | CONS ---
Date/Time of Note Date/Time of Note DATE: 10/14/16 TIME: 13:15 Assessment/Plan Assessment/Plan Chief Complaint/Hosp Course + OM per MRI, previous wound cx + VRE/Strep Plan: PICC line with IV Daptomycin for 6 weeks vs PO Zyvox if insurance approves==> will need to check CBC every 3-4 day Problems: Consultation Date/Type/Reason Admit Date/Time Oct 06, 2016 at 13:38 Initial Consult Date Type of Consultation: ID Exam/Review of Systems Vital Signs Vitals Vital Signs Date Time Temp Pulse Resp B/P Pulse Ox O2 Delivery O2 Flow Rate FiO2 10/14/16 12:39 160/73 10/14/16 08:21 98.2 96 18 98 10/13/16 12:04 Room Air Intake and Output 10/13/16 10/13/16 10/14/16 15:00 23:00 07:00 Intake Total 100 ml 780 ml 600 ml Balance 100 ml 780 ml 600 ml Results Result Diagram: 10/11/16 0544 10/14/16 0531 Results 24 hrs Laboratory Tests Test 10/13/16 17:38 10/13/16 21:00 10/14/16 02:32 10/14/16 05:31 Bedside Glucose 124 239 H 124 Blood Urea Nitrogen 19 Creatinine 0.79 Test 10/14/16 07:47 10/14/16 11:47 Bedside Glucose 104 176 Medications Medications Current Medications Ondansetron HCl (Zofran Tab) 4 mg Q6H PRN PO NAUSEA AND/OR VOMITING Last administered on 10/08/16 08:45; Admin Dose 4 MG; Start 10/06/16 at 16:00 Acetaminophen (Tylenol Tab) 650 mg Q6H PRN PO PAIN LEVEL 1-3 OR FEVER Last administered on 10/07/16 03:39; Admin Dose 650 MG; Start 10/06/16 at 16:00 Acetaminophen (Tylenol Supp) 650 mg Q6H PRN MA PAIN LEVEL 1-3 OR FEVER; Start 10/06/16 at 16:00 Oxycodone/ Acetaminophen (Percocet (5/ 325)) 1 tab Q6H PRN PO MODERATE PAIN LEVEL 4-6 Last administered on 10/14/16 08:42; Admin Dose 1 TAB; Start at 16:00 Morphine Sulfate (morphine) 2 mg Q4H PRN IV SEVERE PAIN LEVEL 7-10 Last administered on 10/07/16 13:57; Admin Dose 2 MG; Start 10/06/16 at 16:00 Docusate Sodium (Colace) 100 mg Q12H PRN PO CONSTIPATION; Start 10/06/16 at 16: 00 Bisacodyl (Dulcolax Supp) 10 mg DAILY PRN MA CONSTIPATION; Start 10/06/16 at 16 :00 Zolpidem Tartrate (Ambien) 5 mg QHS PRN PO SLEEP; Start 10/06/16 at 16:00 Enoxaparin Sodium (Lovenox) 40 mg DAILY SC Last administered on 10/14/16 08:15 ; Admin Dose 40 MG; Start 10/07/16 at 09:00 Aspirin (Halfprin) 162 mg DAILY PO Last administered on 10/14/16 08:16; Admin Dose 162 MG; Start 10/07/16 at 09:00 Methocarbamol (Robaxin) 750 mg TID PO Last administered on 10/14/16 12:05; Admin Dose 750 MG; Start 10/06/16 at 21:00 Atorvastatin Calcium (Lipitor) 10 mg DAILY@21 PO Last administered on 20:57; Admin Dose 10 MG; Start 10/06/16 at 21:00 Linagliptin (Tradjenta) 5 mg DAILY PO Last administered on 10/14/16 08:17; Admin Dose 5 MG; Start 10/07/16 at 09:00 Ferrous Sulfate (Ferrous Sulfate (Ec)) 325 mg DAILY PO Last administered on 08:17; Admin Dose 325 MG; Start 10/08/16 at 09:00 Ascorbic Acid (Vitamin C) 500 mg DAILY PO Last administered on 10/14/16 08:17 ; Admin Dose 500 MG; Start 10/08/16 at 09:00 Lactobacillus Acidophilus/ Rhamnosus (Culturelle) 1 cap BID PO Last administered on 10/14/16 08:22; Admin Dose 1 CAP; Start 10/07/16 at 21:00 Baclofen (Lioresal) 5 mg TID PRN PO MUSCLE SPASMS Last administered on 08:42; Admin Dose 5 MG; Start 10/08/16 at 19:00 Miscellaneous Information 1 ea NOTE XX ; Start 10/10/16 at 07:30 Glucose (Glutose) 15 gm Q15M PRN PO DECREASED GLUCOSE; Start 10/10/16 at 07:30 Glucose (Glutose) 22.5 gm Q15M PRN PO DECREASED GLUCOSE; Start 10/10/16 at 07: 30 Dextrose (D50w Syringe) 25 ml Q15M PRN IV DECREASED GLUCOSE; Start 10/10/16 at 07:30 Dextrose (D50w Syringe) 50 ml Q15M PRN IV DECREASED GLUCOSE; Start 10/10/16 at 07:30 Glucagon (Glucagen) 1 mg Q15M PRN IM DECREASED GLUCOSE; Start 10/10/16 at 07:30 Glucose (Glutose) 15 gm Q15M PRN BUCCAL DECREASED GLUCOSE; Start 10/10/16 at 07 :30 Insulin Glargine (Lantus) 20 unit QHS SC Last administered on 10/13/16 21:01; Admin Dose 20 UNIT; Start 10/10/16 at 21:00 Lisinopril (Zestril) 20 mg DAILY PO Last administered on 10/14/16 08:17; Admin Dose 20 MG; Start 10/12/16 at 09:00 Amlodipine Besylate (Norvasc) 10 mg DAILY PO Last administered on 10/14/16 08: 16; Admin Dose 10 MG; Start 10/11/16 at 17:00 Hydralazine HCl (Apresoline) 10 mg Q6H PRN IV ELEVATED BLOOD PRESSURE Last administered on 10/11/16 20:33; Admin Dose 10 MG; Start 10/11/16 at 20:00 Ibuprofen 400 mg 400 mg Q4H PRN PO PAIN OR TEMP ABOVE 38C Last administered on 10/14/16 12:43; Admin Dose 400 MG; Start 10/11/16 at 22:00 Daptomycin/Sodium Chloride (Cubicin/NS) 100 ml @ 200 mls/hr Q24H IVPB ; Start 10/14/16 at 13:30; Status NYASIA SINGLETON NP Oct 14, 2016 13:18
--- NOTE | 2016-10-14 14:00 | PN ---
DATE: 10/14/2016 SUBJECTIVE: No acute events. The patient is alert, feels good, looks comfortable, no fevers. Mary l signs stable. No labs this morning. BUN 19, creatinine 0.79. ANTIMICROBIALS: The patient is on: 1. IV vancomycin. 2. Zosyn. PHYSICAL EXAMINATION: GENERAL: This is a well-developed, elderly woman who is lying comfortably in bed. HEENT: Head atraumatic, normocephalic. Sclerae anicteric. Buccal mucosa pink. NECK: Supple, trachea midline. CHEST: Rise symmetrical. Breath sounds clear. HEART: S1, S2. ABDOMEN: Soft, bowel tones present. EXTREMITIES: With right foot dressing intact. ASSESSMENT: 1. Right foot cellulitis with osteomyelitis. Cultures on previous admission in August 2015 grew s trep agalactia and VRE, no cultures done on this admission. 2. Peripheral vascular disease. 3. Diabetes. 4. Hypertension. PLAN: The patient remains stable. Podiatry on case. We are going to discontinue Zosyn and vancomy hakan and start patient on Zyvox and anticipate treating her with 6 weeks of oral antibiotics with Zyv ox. Our choice would be daptomycin IV 6 mg/kg for 6 weeks. Dictated By: NYASIA DE PAZ [employer] for CHRISTI CORCORAN/YOAV Conf#: [id number] DID#: [id number]
[2016-10-14] MEDS ORDERED: LIDOCAINE 1% (MDV) 20 ML INJ SC ONE (14:30)
[2016-10-14] MEDS ORDERED: DAPT500V IV (15:16)
--- NOTE | 2016-10-14 15:24 | DS ---
Date/Time of Note Date/Time of Note DATE: 10/14/16 TIME: 15:20 Discharge Summary Admission/Discharge Info Admit Date/Time Oct 06, 2016 at 13:38 Discharge Date/Time Final Diagnosis 1. Right foot cellulitis and osteomyelitis, gangrene of the right third toe s/ p debridement, daptomycin for 6 weeks, follow up with wound care and podiatry 2. Diabetes mellitus. stable, follow up with PCP 3. History essential hypertension. stable, resume home medications and follow up with PCP 4. Dyslipidemia. Continue statin. 5. Arthritis. Continue pain medication. 6. Anemia of chronic disease, stable Patient Condition: Stable Hospital Course This is a very pleasant 61-year-old female who is known to me from her prior hospitalization with a past medical history of right foot cellulitis and amputation of the right 4th toe, right third toe debridement x2, diabetes mellitus type 2, recent superficial femoral artery bypass, hypertension, dyslipidemia, arthritis, anemia of chronic disease, rhabdomyolysis, who was seen and evaluated at [facility] by Dr. Samuel Villanueva, podiatry today and was found to have worsening of her right foot cellulitis and has been admitted to [facility] for further evaluation and treatment. The patient denies any chest pain, shortness of breath, nausea, vomiting and diarrhea. No headache , dizziness, lightheadedness. No change in visual acuity, diplopia, photophobia. Positive for neck pain, no restricted range of motion in upper and lower extremities. Positive for erythema and bleeding from her right foot at the surgical site. Otherwise the 12 review of systems has been found to be negative. Patient had bed side gangrenous toe. Patient got debridement. MRI revealed multiple toes osteomyelitis. She will be on IV daptomycin for 6 weeks. 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 Home Meds Active Scripts Daptomycin (Daptomycin) 500 Mg Vial, 360 MG IV DAILY for 42 Days, VIAL Prov:CHELLE WADE MD 10/14/16 Hydrocodone/Acetaminophen ([place] 5-325 Tablet) 1 Each Tablet, 1 TAB PO Q6H Y for PAIN, #20 TAB Prov:LIZ AMBRIZ DO 10/02/16 Methocarbamol* (Robaxin*) 750 Mg Tablet, 750 MG PO TID, #14 TAB Prov:LIZ AMBRIZ DO 10/02/16 Ibuprofen* (Motrin*) 600 Mg Tab, 600 MG PO Q8, #30 TAB Prov:BERTHA AMBRIZBECKY Hogan DO 10/02/16 Reported Medications Aspirin* (Aspirin* EC) 81 Mg Tablet.dr, 162 MG PO DAILY, TAB 10/01/16 Sitagliptin Phos/Metformin HCl (Janumet 50-1,000 mg Tablet) 1 Each Tablet, 1 EACH PO BID, TAB 10/01/16 Losartan Potassium* (Losartan Potassium*) 100 Mg Tablet, 100 MG PO DAILY, TAB 10/01/16 Pravastatin Sodium* (Pravastatin Sodium*) 10 Mg Tablet, 10 MG PO DAILY, TAB 10/01/16 Hydralazine Hcl* (Hydralazine Hcl*) 25 Mg Tab, 25 MG PO Q8, #90 TAB 10/01/16 Insulin Glargine* (Lantus*) 100 Unit/Ml Soln, 17 UNIT SC QHS, #1 VIAL 10/01/16 Follow-up Plan PCP and podiatry in one week Pending Labs Laboratory Tests Test 10/13/16 17:38 10/13/16 21:00 10/14/16 02:32 10/14/16 05:31 Bedside Glucose 124mg/dL (70-220) 239mg/dL (70-220) 124mg/dL (70-220) Blood Urea Nitrogen 19mg/dl (7-20) Creatinine 0.79mg/dl (0.44-1.00) Test 10/14/16 07:47 10/14/16 11:47 Bedside Glucose 104mg/dL (70-220) 176mg/dL (70-220) CHELLE WADE MD Oct 14, 2016 15:24
[2016-10-14] MEDS: DAPTOMYCIN IVPB SCH (15:30)
[2016-10-14] MEDS: SOD CHLORIDE 0.9% IVPB SCH (15:30)
--- NOTE | 2016-10-14 17:15 | RADRPT ---
PROCEDURE: XR Chest. CLINICAL INDICATION: Check PICC line position. TECHNIQUE: Single frontal view. COMPARISON: 10/06/2016. FINDINGS: There is a left arm PICC line with the tip in the lower superior vena cava. The lungs are clear. The heart size is normal. There is no pleural effusion. There is no pneumothorax. IMPRESSION: 1. Satisfactory position of left arm PICC line. 2. Otherwise normal chest radiograph. RPTAT: QQ .Osmar Clifton MD, MD Date Time Electronically viewed and signed by .Osmar Clifton MD, MD on 10/14/2016 17:14 .R/
--- NOTE | 2016-10-14 17:45 | RADRPT ---
PROCEDURE: US guidance for PICC line CLINICAL INDICATION: PICC line placement TECHNIQUE: Multiple real-time images were acquired of the patient's arm utilizing a high resolutio n transducer. This was performed by the PICC line nurse for venous access. COMPARISON: None FINDINGS: Ultrasound guidance for PICC line placement. IMPRESSION: Ultrasound guidance for PICC line placement. RPTAT: AA .Paul Basurto MD, MD Date Time Electronically viewed and signed by .Paul Basurto MD, on 10/14/2016 17:45 .S/
[2016-10-14] MEDS ORDERED: VANCOMYCIN 1 GM in NS 250 ML IVPB SCH (18:00)
[2016-10-14 20:20] VITALS: BP 136/62; RESP 19
[2016-10-14] MEDS: INSULIN GLARGINE [LANtus] 3 ML PEN SC SCH (20:39)
[2016-10-14] MEDS: ATORVASTATIN 10 MG TAB PO SCH (20:40)
[2016-10-15] MEDS: OXYCODONE/ACETAMINOPHEN (5/325) TAB PO PRN (05:56)
[2016-10-15] MEDS: INSULIN ASPART [NOVOLOG] 3 ML PEN SC SCH ×2 (08:00→12:19)
[2016-10-15 08:07] VITALS: BP 136/64; RESP 18
[2016-10-15] MEDS: ENOXAPARIN 40 MG/0.4 ML SYG SC SCH (08:15)
[2016-10-15] MEDS: METHOCARBAMOL 750 MG TAB PO SCH ×2 (08:16→12:13)
[2016-10-15] MEDS: LISINOPRIL 20 MG TAB PO SCH (08:16)
[2016-10-15] MEDS: ASPIRIN (EC) 81 MG TAB PO SCH (08:16)
[2016-10-15] MEDS: FERROUS SULFATE (EC) 325 MG TAB PO SCH (08:16)
[2016-10-15] MEDS: LACTOBACILLUS RHAMNOSUS CAP PO SCH (08:16)
[2016-10-15] MEDS: AMLODIPINE 10 MG TAB PO SCH (08:17)
[2016-10-15] MEDS: LINAGLIPTIN 5 MG TABLET PO SCH (08:17)
[2016-10-15] MEDS: ASCORBIC ACID 500 MG TAB PO SCH (08:17)
--- NOTE | 2016-10-15 09:49 | PN ---
Date/Time of Note Date/Time of Note DATE: 10/15/16 TIME: 09:46 Assessment/Plan VTE Prophylaxis VTE Prophylaxis Intervention: heparin Lines/Catheters IV [facility] Type (from [facility]): PICC Line Central line still needed: Yes Assessment/Plan Problems: (1) Osteomyelitis of foot, right, acute Status: Acute Comment: This is going to require either surgical removal or long-term IV antibiotic therapy. Will need guidance from infectious disease and from podiatry about with her goals of therapy are here in the best way to approach this so we can make discharge planning and get the patient moving. Right now the patient is nonambulatory due to the foot infection (2) Diabetes mellitus with polyneuropathy Status: Chronic Comment: Blood sugar control is adequate with occasional excursions at this time. Please notice the infection comes under control this may improve. We may need to actually reduce medications Qualifiers: Diabetes mellitus type: type 2 Qualified Code: E11.42 - Diabetic polyneuropathy associated with type 2 diabetes mellitus (3) Peripheral vascular disease Status: Chronic Comment: She is status post vascular bypass recently. For now the bypass appears to be operational but we still have the issues regarding of the osteomyelitis. (4) Hypertension Status: Chronic Comment: Well-controlled Qualifiers: Hypertension type: essential hypertension Qualified Code: I10 - Essential hypertension Subjective 24 Hr Interval Summary Free Text/Dictation Patient lying in bed conversing freely in Mexican Constitutional: no complaints (Denies fevers chills or sweats) Eyes: no complaints (Denies change in vision) Respiratory: no complaints Cardiovascular: no complaints Gastrointestinal: no complaints Genitourinary: no complaints Exam/Review of Systems Vital Signs Vitals Vital Signs Date Time Temp Pulse Resp B/P Pulse Ox O2 Delivery O2 Flow Rate FiO2 10/15/16 08:07 98.0 80 18 136/64 97 10/13/16 12:04 Room Air Intake and Output 10/14/16 10/14/16 10/15/16 15:00 23:00 07:00 Intake Total 200 ml 1300 ml 1175 ml Balance 200 ml 1300 ml 1175 ml Exam Constitutional: alert, oriented Eyes: EOMI, nl conjunctiva, nl lids, nl sclera Neck: non-tender, supple Respiratory: clear to auscultation, normal air movement Cardiovascular: nl pulses, regular rate and rhythm Extremities: other (Right foot bandaged.) Results Result Diagram: 10/11/16 0544 10/14/16 0531 Results 24 hrs Laboratory Tests Test 10/14/16 11:47 10/14/16 17:17 10/14/16 20:37 10/15/16 05:35 Bedside Glucose 176 209 294 H Creatine Kinase 31 Test 10/15/16 07:36 Bedside Glucose 117 Medications Medications Current Medications Ondansetron HCl (Zofran Tab) 4 mg Q6H PRN PO NAUSEA AND/OR VOMITING Last administered on 10/08/16 08:45; Admin Dose 4 MG; Start 10/06/16 at 16:00 Acetaminophen (Tylenol Tab) 650 mg Q6H PRN PO PAIN LEVEL 1-3 OR FEVER Last administered on 10/07/16 03:39; Admin Dose 650 MG; Start 10/06/16 at 16:00 Acetaminophen (Tylenol Supp) 650 mg Q6H PRN ND PAIN LEVEL 1-3 OR FEVER; Start 10/06/16 at 16:00 Oxycodone/ Acetaminophen (Percocet (5/ 325)) 1 tab Q6H PRN PO MODERATE PAIN LEVEL 4-6 Last administered on 10/15/16 05:56; Admin Dose 1 TAB; Start at 16:00 Morphine Sulfate (morphine) 2 mg Q4H PRN IV SEVERE PAIN LEVEL 7-10 Last administered on 10/07/16 13:57; Admin Dose 2 MG; Start 10/06/16 at 16:00 Docusate Sodium (Colace) 100 mg Q12H PRN PO CONSTIPATION Last administered on 08:17; Admin Dose 100 MG; Start 10/06/16 at 16:00 Bisacodyl (Dulcolax Supp) 10 mg DAILY PRN [place] CONSTIPATION; Start 10/06/16 at 16 :00 Zolpidem Tartrate (Ambien) 5 mg QHS PRN PO SLEEP; Start 10/06/16 at 16:00 Enoxaparin Sodium (Lovenox) 40 mg DAILY SC Last administered on 10/15/16 08:15 ; Admin Dose 40 MG; Start 10/07/16 at 09:00 Aspirin (Halfprin) 162 mg DAILY PO Last administered on 10/15/16 08:16; Admin Dose 162 MG; Start 10/07/16 at 09:00 Methocarbamol (Robaxin) 750 mg TID PO Last administered on 10/15/16 08:16; Admin Dose 750 MG; Start 10/06/16 at 21:00 Atorvastatin Calcium (Lipitor) 10 mg DAILY@21 PO Last administered on 20:40; Admin Dose 10 MG; Start 10/06/16 at 21:00 Linagliptin (Tradjenta) 5 mg DAILY PO Last administered on 10/15/16 08:17; Admin Dose 5 MG; Start 10/07/16 at 09:00 Ferrous Sulfate (Ferrous Sulfate (Ec)) 325 mg DAILY PO Last administered on 08:16; Admin Dose 325 MG; Start 10/08/16 at 09:00 Ascorbic Acid (Vitamin C) 500 mg DAILY PO Last administered on 10/15/16 08:17 ; Admin Dose 500 MG; Start 10/08/16 at 09:00 Lactobacillus Acidophilus/ Rhamnosus (Culturelle) 1 cap BID PO Last administered on 10/15/16 08:16; Admin Dose 1 CAP; Start 10/07/16 at 21:00 Baclofen (Lioresal) 5 mg TID PRN PO MUSCLE SPASMS Last administered on 08:42; Admin Dose 5 MG; Start 10/08/16 at 19:00 Miscellaneous Information 1 ea NOTE XX ; Start 10/10/16 at 07:30 Glucose (Glutose) 15 gm Q15M PRN PO DECREASED GLUCOSE; Start 10/10/16 at 07:30 Glucose (Glutose) 22.5 gm Q15M PRN PO DECREASED GLUCOSE; Start 10/10/16 at 07: 30 Dextrose (D50w Syringe) 25 ml Q15M PRN IV DECREASED GLUCOSE; Start 10/10/16 at 07:30 Dextrose (D50w Syringe) 50 ml Q15M PRN IV DECREASED GLUCOSE; Start 10/10/16 at 07:30 Glucagon (Glucagen) 1 mg Q15M PRN IM DECREASED GLUCOSE; Start 10/10/16 at 07:30 Glucose (Glutose) 15 gm Q15M PRN BUCCAL DECREASED GLUCOSE; Start 10/10/16 at 07 :30 Insulin Glargine (Lantus) 20 unit QHS SC Last administered on 10/14/16 20:39; Admin Dose 20 UNIT; Start 10/10/16 at 21:00 Lisinopril (Zestril) 20 mg DAILY PO Last administered on 10/15/16 08:16; Admin Dose 20 MG; Start 10/12/16 at 09:00 Amlodipine Besylate (Norvasc) 10 mg DAILY PO Last administered on 10/15/16 08: 17; Admin Dose 10 MG; Start 10/11/16 at 17:00 Hydralazine HCl (Apresoline) 10 mg Q6H PRN IV ELEVATED BLOOD PRESSURE Last administered on 10/11/16 20:33; Admin Dose 10 MG; Start 10/11/16 at 20:00 Ibuprofen 400 mg 400 mg Q4H PRN PO PAIN OR TEMP ABOVE 38C Last administered on 10/14/16 12:43; Admin Dose 400 MG; Start 10/11/16 at 22:00 Daptomycin/Sodium Chloride (Cubicin/NS) 100 ml @ 200 mls/hr Q24H IVPB Last administered on 10/14/16 15:30; Admin Dose 200 MLS/HR; Start 10/14/16 at 16:00 IV Flush (NS 10 ml) 10 ml PRN PRN IV IV PROTOCOL; Start 10/14/16 at 17:30 EVERETT TO MD Oct 15, 2016 09:49
[2016-10-15] MEDS: SOD CHLORIDE 0.9% IVPB SCH (12:13)
[2016-10-15] MEDS: DAPTOMYCIN IVPB SCH (12:13)
[2016-10-15] MEDS ORDERED: SOD CHLORIDE 0.9% 100 ML ONE (12:22)
[2016-10-15] MEDS ORDERED: PENTOXIFYLLINE (SR) 400 MG TAB PO SCH (13:00)
--- NOTE | 2016-10-15 14:30 | CONS ---
Date/Time of Note Date/Time of Note DATE: 10/15/16 TIME: 14:29 Assessment/Plan Assessment/Plan Chief Complaint/Hosp Course ID PROGRESS NOTE Patient DC prior to examination today -- Please delete this progress note as patient was not seen. Problems: Consultation Date/Type/Reason Admit Date/Time Oct 06, 2016 at 13:38 Initial Consult Date Type of Consultation: ID Exam/Review of Systems Vital Signs Vitals Vital Signs Date Time Temp Pulse Resp B/P Pulse Ox O2 Delivery O2 Flow Rate FiO2 10/15/16 08:07 98.0 80 18 136/64 97 10/13/16 12:04 Room Air Intake and Output 10/14/16 10/14/16 10/15/16 15:00 23:00 07:00 Intake Total 200 ml 1300 ml 1175 ml Balance 200 ml 1300 ml 1175 ml Results Result Diagram: 10/11/16 0544 10/14/16 0531 Results 24 hrs Laboratory Tests Test 10/14/16 17:17 10/14/16 20:37 10/15/16 05:35 10/15/16 07:36 Bedside Glucose 209 294 H 117 Creatine Kinase 31 Test 10/15/16 11:50 Bedside Glucose 186 Medications Medications Current Medications Ondansetron HCl (Zofran Tab) 4 mg Q6H PRN PO NAUSEA AND/OR VOMITING Last administered on 10/08/16 08:45; Admin Dose 4 MG; Start 10/06/16 at 16:00 Acetaminophen (Tylenol Tab) 650 mg Q6H PRN PO PAIN LEVEL 1-3 OR FEVER Last administered on 10/07/16 03:39; Admin Dose 650 MG; Start 10/06/16 at 16:00 Acetaminophen (Tylenol Supp) 650 mg Q6H PRN [place] PAIN LEVEL 1-3 OR FEVER; Start 10/06/16 at 16:00 Oxycodone/ Acetaminophen (Percocet (5/ 325)) 1 tab Q6H PRN PO MODERATE PAIN LEVEL 4-6 Last administered on 10/15/16 05:56; Admin Dose 1 TAB; Start at 16:00 Morphine Sulfate (morphine) 2 mg Q4H PRN IV SEVERE PAIN LEVEL 7-10 Last administered on 10/07/16 13:57; Admin Dose 2 MG; Start 10/06/16 at 16:00 Docusate Sodium (Colace) 100 mg Q12H PRN PO CONSTIPATION Last administered on 08:17; Admin Dose 100 MG; Start 10/06/16 at 16:00 Bisacodyl (Dulcolax Supp) 10 mg DAILY PRN [place] CONSTIPATION; Start 10/06/16 at 16 :00 Zolpidem Tartrate (Ambien) 5 mg QHS PRN PO SLEEP; Start 10/06/16 at 16:00 Enoxaparin Sodium (Lovenox) 40 mg DAILY SC Last administered on 10/15/16 08:15 ; Admin Dose 40 MG; Start 10/07/16 at 09:00 Aspirin (Halfprin) 162 mg DAILY PO Last administered on 10/15/16 08:16; Admin Dose 162 MG; Start 10/07/16 at 09:00 Methocarbamol (Robaxin) 750 mg TID PO Last administered on 10/15/16 12:13; Admin Dose 750 MG; Start 10/06/16 at 21:00 Atorvastatin Calcium (Lipitor) 10 mg DAILY@21 PO Last administered on 20:40; Admin Dose 10 MG; Start 10/06/16 at 21:00 Linagliptin (Tradjenta) 5 mg DAILY PO Last administered on 10/15/16 08:17; Admin Dose 5 MG; Start 10/07/16 at 09:00 Ferrous Sulfate (Ferrous Sulfate (Ec)) 325 mg DAILY PO Last administered on 08:16; Admin Dose 325 MG; Start 10/08/16 at 09:00 Ascorbic Acid (Vitamin C) 500 mg DAILY PO Last administered on 10/15/16 08:17 ; Admin Dose 500 MG; Start 10/08/16 at 09:00 Lactobacillus Acidophilus/ Rhamnosus (Culturelle) 1 cap BID PO Last administered on 10/15/16 08:16; Admin Dose 1 CAP; Start 10/07/16 at 21:00 Baclofen (Lioresal) 5 mg TID PRN PO MUSCLE SPASMS Last administered on 08:42; Admin Dose 5 MG; Start 10/08/16 at 19:00 Miscellaneous Information 1 ea NOTE XX ; Start 10/10/16 at 07:30 Glucose (Glutose) 15 gm Q15M PRN PO DECREASED GLUCOSE; Start 10/10/16 at 07:30 Glucose (Glutose) 22.5 gm Q15M PRN PO DECREASED GLUCOSE; Start 10/10/16 at 07: 30 Dextrose (D50w Syringe) 25 ml Q15M PRN IV DECREASED GLUCOSE; Start 10/10/16 at 07:30 Dextrose (D50w Syringe) 50 ml Q15M PRN IV DECREASED GLUCOSE; Start 10/10/16 at 07:30 Glucagon (Glucagen) 1 mg Q15M PRN IM DECREASED GLUCOSE; Start 10/10/16 at 07:30 Glucose (Glutose) 15 gm Q15M PRN BUCCAL DECREASED GLUCOSE; Start 10/10/16 at 07 :30 Insulin Glargine (Lantus) 20 unit QHS SC Last administered on 10/14/16 20:39; Admin Dose 20 UNIT; Start 10/10/16 at 21:00 Lisinopril (Zestril) 20 mg DAILY PO Last administered on 10/15/16 08:16; Admin Dose 20 MG; Start 10/12/16 at 09:00 Amlodipine Besylate (Norvasc) 10 mg DAILY PO Last administered on 10/15/16 08: 17; Admin Dose 10 MG; Start 10/11/16 at 17:00 Hydralazine HCl (Apresoline) 10 mg Q6H PRN IV ELEVATED BLOOD PRESSURE Last administered on 10/11/16 20:33; Admin Dose 10 MG; Start 10/11/16 at 20:00 Ibuprofen 400 mg 400 mg Q4H PRN PO PAIN OR TEMP ABOVE 38C Last administered on 10/14/16 12:43; Admin Dose 400 MG; Start 10/11/16 at 22:00 Daptomycin/Sodium Chloride (Cubicin/NS) 100 ml @ 200 mls/hr Q24H IVPB Last administered on 10/15/16 12:13; Admin Dose 200 MLS/HR; Start 10/14/16 at 16:00 IV Flush (NS 10 ml) 10 ml PRN PRN IV IV PROTOCOL; Start 10/14/16 at 17:30 Pentoxifylline (Trental) 400 mg TID PO Last administered on 10/15/16 12:13; Admin Dose 400 MG; Start 10/15/16 at 13:00 Cilostazol (Pletal) 100 mg BID PO ; Start 10/15/16 at 21:00 [employer] HE[employer] METER/[employer] CRAFTSMAN Oct 15, 2016 14:30 Dextrose (D50w Syringe) 50 ml Q15M PRN IV DECREASED GLUCOSE; Start 10/10/16 at 07:30 Glucagon (Glucagen) 1 mg Q15M PRN IM DECREASED GLUCOSE; Start 10/10/16 at 07:30 Glucose (Glutose) 15 gm Q15M PRN BUCCAL DECREASED GLUCOSE; Start 10/10/16 at 07 :30 Insulin Glargine (Lantus) 20 unit QHS SC Last administered on 10/14/16 20:39; Admin Dose 20 UNIT; Start 10/10/16 at 21:00 Lisinopril (Zestril) 20 mg DAILY PO Last administered on 10/15/16 08:16; Admin Dose 20 MG; Start 10/12/16 at 09:00 Amlodipine Besylate (Norvasc) 10 mg DAILY PO Last administered on 10/15/16 08: 17; Admin Dose 10 MG; Start 10/11/16 at 17:00 Hydralazine HCl (Apresoline) 10 mg Q6H PRN IV ELEVATED BLOOD PRESSURE Last administered on 10/11/16 20:33; Admin Dose 10 MG; Start 10/11/16 at 20:00 Ibuprofen 400 mg 400 mg Q4H PRN PO PAIN OR TEMP ABOVE 38C Last administered on 10/14/16 12:43; Admin Dose 400 MG; Start 10/11/16 at 22:00 Daptomycin/Sodium Chloride (Cubicin/NS) 100 ml @ 200 mls/hr Q24H IVPB Last administered on 10/15/16 12:13; Admin Dose 200 MLS/HR; Start 10/14/16 at 16:00 IV Flush (NS 10 ml) 10 ml PRN PRN IV IV PROTOCOL; Start 10/14/16 at 17:30 Pentoxifylline (Trental) 400 mg TID PO Last administered on 10/15/16 12:13; Admin Dose 400 MG; Start 10/15/16 at 13:00 Cilostazol (Pletal) 100 mg BID PO ; Start 10/15/16 at 21:00 [employer] HE[employer]RAFTSM[employer] Oct 15, 2016 14:30
[2016-10-15] MEDS ORDERED: CILOSTAZOL 100 MG TAB PO SCH (21:00)
--- NOTE | 2016-10-17 08:21 | CONS ---
DATE OF ADMISSION: 10/06/2016 DATE OF CONSULTATION: 10/14/2016 ADDENDUM On my dictation from September 12, I noted that she had osteomyelitis of the third, fourth and fifth toes. Therefore, her antibiotic regimen should extend for 6 weeks, rather than 14 days, which I alyssia finn mentioned. She should be treated for 6 weeks for the osteomyelitis unless amputations are do ne. Dictated By: CHRISTI BARRETT MD, JD/YOAV Conf#: [id number] DID#: [id number]
== END 2016-10-15 14:55 | disposition home health service (06) | DRG 982 ==
LOC: PP2 13:38 → OBG 10-07 15:59 → PP2 10-12 09:50
PROVIDERS: ADMIT Family Medicine; ATTEND Family Medicine
PROC: 00D20ZZ Extraction of Dura Mater, Open Approach (ICD-10-PCS; principal; 2016-10-09)
PROC: 02HV33Z Insertion of Infusion Device into Superior Vena Cava, Percutaneous Approach (ICD-10-PCS; 2016-10-14)
DX: E11.52 Type 2 diabetes mellitus with diabetic peripheral angiopathy with gangrene (principal); I70.263 Atherosclerosis of native arteries of extremities with gangrene, bilateral legs; M86.171 Other acute osteomyelitis, right ankle and foot; E11.42 Type 2 diabetes mellitus with diabetic polyneuropathy; M62.82 Rhabdomyolysis; L02.611 Cutaneous abscess of right foot; E11.621 Type 2 diabetes mellitus with foot ulcer; E11.69 Type 2 diabetes mellitus with other specified complication; E11.628 Type 2 diabetes mellitus with other skin complications; L97.514 Non-pressure chronic ulcer of other part of right foot with necrosis of bone; M13.88 Other specified arthritis, other site; L03.031 Cellulitis of right toe; I10 Essential (primary) hypertension; E78.5 Hyperlipidemia, unspecified; D63.8 Anemia in other chronic diseases classified elsewhere; Z95.828 Presence of other vascular implants and grafts; Z79.4 Long term (current) use of insulin; Z89.421 Acquired absence of other right toe(s)
CPT/HCPCS: 36569; 71010; 73630; 73718; 76937; 80048; 80053; 81001; 81003; 82550; 82553; 82565; 82962; 83036; 83540; 83735; 84484; 84520; 85025; 85610; 85651; 85730; 86140; 86850; 86900; 86901; 87040; 90686; 93005; J0360; J1650; J1815; J2270; J2543; J3370; J3475; J7050

== ENCOUNTER 2017-03-18 12:07 | Emergency (ER) | payer BC ==
[~2017-03-18] VITALS: Ht 142.2 cm; Wt 67.0 kg
[~2017-03-18 12:07] MED LIST changes: +DAPT500V IV; -METH-70 PO; +METH750T93 PO
[2017-03-18 12:11] VITALS: Ht 142.2 cm; Wt 67.0 kg
[2017-03-18] MEDS ORDERED: SOD CHLORIDE 0.9% 1,000 ML IV ONE (13:00)
[2017-03-18] MEDS ORDERED: PIPER-TAZO 3.375 GM IV (PMX) 100 ML IVPB ONE (13:00)
[2017-03-18] MEDS ORDERED: VANCOMYCIN 1.25 GM in SOD CHLORIDE 0.9% 250 ML IVPB ONE (13:00)
[2017-03-18 13:04] LABS: BASOPHIL # 0.1 10^3/ul (0.0-0.1); BASOPHILS % 0.8 % (0.0-2.0); EOSINOPHILS # 0.2 10^3/ul (0.0-0.5); EOSINOPHILS % 2.1 % (0.0-7.0); HEMATOCRIT 34.3 % (37.0-47.0); LYMPHOCYTES # 3.1 10^3/ul (0.8-2.9); LYMPHOCYTES % 27.2 % (15.0-51.0); MEAN CORPUSCULAR HEMOGLOBIN 26.6 pg (29.0-33.0); MEAN CORPUSCULAR HGB CONC 32.1 g/dl (32.0-37.0); MEAN CORPUSCULAR VOLUME 83.1 fl (82.0-101.0); MEAN PLATELET VOLUME 10.7 fl (7.4-10.4); MONOCYTE # 0.9 10^3/ul (0.3-0.9); MONOCYTES % 7.6 % (0.0-11.0); NEUTROPHILS % 61.9 % (39.0-77.0); PLATELET COUNT 400 10^3/UL (140-415); RED BLOOD COUNT 4.13 10^6/ul (4.20-5.40); RED CELL DISTRIBUTION WIDTH 14.3 % (11.5-14.5); WHITE BLOOD COUNT 11.3 10^3/ul (4.8-10.8)
[2017-03-18 13:15] LABS: ADD UMIC YES; UR ASCORBIC ACID NEGATIVE (NEGATIVE); UR BACTERIA MANY /HPF (NONE SEEN); UR BILIRUBIN (Dip) NEGATIVE (NEGATIVE); UR BLOOD (Dip) NEGATIVE (NEGATIVE); UR CLARITY SLIGHTLY CLOUDY (CLEAR); UR COLOR YELLOW (YELLOW); UR GLUCOSE (Dip) NEGATIVE (NEGATIVE); UR KETONES (Dip) NEGATIVE (NEGATIVE); UR LEUKOCYTE ESTERASE (Dip) 1+ Leu/ul (NEGATIVE); UR MUCUS FEW /HPF (NONE SEEN); UR NITRITE (Dip) POSITIVE (NEGATIVE); UR RBC 1 /HPF (0-5); UR SPECIFIC GRAVITY (Dip) 1.012 (1.003-1.030); UR SQUAMOUS EPITHELIAL CELL FEW /HPF (FEW); UR TOTAL PROTEIN (Dip) 2+ mg/dl (NEGATIVE); UR UROBILINOGEN (Dip) NEGATIVE (NEGATIVE)
[2017-03-18 13:24] LABS: ALANINE AMINOTRANSFERASE 20 IU/L (13-69); ALBUMIN 4.9 g/dl (3.3-4.9); ALBUMIN/GLOBULIN RATIO 1.19; ALKALINE PHOSPHATASE 113 IU/L (42-121); ANION GAP 21 (8-16); ASPARTATE AMINO TRANSFERASE 21 IU/L (15-46); BILIRUBIN,INDIRECT 0.3 mg/dl (0-1.1); BILIRUBIN,TOTAL 0.3 mg/dl (0.2-1.3); BLOOD UREA NITROGEN 59 mg/dl (7-20); CALCIUM 9.9 mg/dl (8.4-10.2); CARBON DIOXIDE 23 mmol/L (21-31); CHLORIDE 102 mmol/L (97-110); CREATININE 1.27 mg/dl (0.44-1.00); GLUCOSE 159 mg/dl (70-220); POTASSIUM 5.3 mmol/L (3.5-5.1); SODIUM 141 mmol/L (135-144)
[2017-03-18 13:33] LABS: C-REACTIVE PROTEIN < 0.5 mg/dl (0.0-0.9)
--- NOTE | 2017-03-18 14:42 | RADRPT ---
PROCEDURE: XR RIGHT FOOT. CLINICAL INDICATION: Right foot pain. TECHNIQUE: Three views of the right foot were obtained. COMPARISON: 10/06/2016. FINDINGS: A marker was placed adjacent to the tip of the third toe. There is soft tissue swelling of the third and fifth toes and there is probable ulceration.. Since prior examination, the third middle and dis ajay phalanges have either been resorbed or resected. In the setting of cellulitis and possible ulce ration, the findings likely represent bone destructive change / resorption and osteomyelitis. There is a similar appearance of the distal phalanx of the fifth digit. No change in the appearance of th e fourth toe status post amputation or chronic bone destructive change. There is a hallux valgus present. Atherosclerotic calcifications are seen. There are surgical clip s in the medial mid foot and ankle. IMPRESSION: 1. Findings suggesting cellulitis and osteomyelitis of the middle and distal phalanx of the third d igit and distal phalanx of the fifth digit. 2. Atherosclerotic calcifications. 3. Hallux valgus. RPTAT: XX .Dwight Hassan MD, MD Date Time Electronically viewed and signed by .Dwight Hassan MD, on 03/18/2017 14:41 .T/
--- NOTE | 2017-03-18 14:56 | ERD ---
ER Documentation Chief Complaint Date/Time DATE: 03/18/17 TIME: 14:48 Chief Complaint right toe pain ( re check) HPI This is a 62-year-old female that presents to the ER with right toe discharge that started last night. Patient states that this morning she noticed that there was an increased area of redness and she developed slight pain. Pain is throbbing in quality. It is nonradiating. She has not taken any for the pain. Patient has a past medical history of diabetes and previous fourth digit and distal third digit toe amputation which was done a year ago. Patient does follow up with amputation prevention center. Patient denies any fever or chills. ROS 12 point review of systems was done, all negative except per HPI. Medications Home Meds Active Scripts Daptomycin (Daptomycin) 500 Mg Vial, 360 MG IV DAILY for 42 Days, VIAL Prov:CHELLE WADE MD 10/14/16 Hydrocodone/Acetaminophen ([place] 5-325 Tablet) 1 Each Tablet, 1 TAB PO Q6H Y for PAIN, #20 TAB Prov:LIZ AMBRIZ DO 10/02/16 Methocarbamol* (Robaxin*) 750 Mg Tablet, 750 MG PO TID, #14 TAB Prov:LIZ AMBRIZ DO 10/02/16 Ibuprofen* (Motrin*) 600 Mg Tab, 600 MG PO Q8, #30 TAB Prov:LIZ AMBRIZ DO 10/02/16 Reported Medications Aspirin* (Aspirin* EC) 81 Mg Tablet.dr, 162 MG PO DAILY, TAB 10/01/16 Sitagliptin Phos/Metformin HCl (Janumet 50-1,000 mg Tablet) 1 Each Tablet, 1 EACH PO BID, TAB 10/01/16 Losartan Potassium* (Losartan Potassium*) 100 Mg Tablet, 100 MG PO DAILY, TAB 10/01/16 Pravastatin Sodium* (Pravastatin Sodium*) 10 Mg Tablet, 10 MG PO DAILY, TAB 10/01/16 Hydralazine Hcl* (Hydralazine Hcl*) 25 Mg Tab, 25 MG PO Q8, #90 TAB 10/01/16 Insulin Glargine* (Lantus*) 100 Unit/Ml Soln, 17 UNIT SC QHS, #1 VIAL 10/01/16 Allergies Allergies: Coded Allergies: No Known Drug Allergy (Verified Allergy, Unknown, 2/11/17) PMhx/Soc History of Surgery: Yes (S/P FEMPOP BYPASS;CATARACT SURGERY) Anesthesia Reaction: No Hx Neurological Disorder: No Hx Respiratory Disorders: No Hx Psychiatric Problems: No Hx Miscellaneous Medical Probl: Yes (DM) Hx Alcohol Use: No Hx Substance Use: No Hx Tobacco Use: No Smoking Status: Never smoker Physical Exam Vitals Vital Signs Date Time Temp Pulse Resp B/P Pulse Ox O2 Delivery O2 Flow Rate FiO2 03/18/17 16:34 98.3 70 18 136/73 98 Room Air 03/18/17 12:11 98.3 86 19 169/85 100 Physical Exam GENERAL: The patient is well developed and appropriate for usual state of health , in no apparent distress. HEENT: Atraumatic. CHEST: Clear to auscultation bilaterally. There are no rales, wheezes or rhonchi. HEART: Regular rate and rhythm. No murmurs, clicks, rubs or gallops. EXTREMITIES: Right foot: amputation of the 4th digit and the distal 3rd digit. There is no pus to the distal toe and surrounding erythema and warmth to the touch. +2 pulses. NEURO: Alert and oriented. Result Diagram: 03/18/17 1250 03/18/17 1250 Results 24 hrs Laboratory Tests Test 03/18/17 12:45 03/18/17 12:50 Urine Color YELLOW Urine Clarity SLIGHTLY CLOUDY Urine pH 5.0 Urine Specific Blossom 1.012 Urine Ketones NEGATIVEmg/dL Urine Nitrite POSITIVEmg/dL Urine Bilirubin NEGATIVEmg/dL Urine Urobilinogen NEGATIVEmg/dL Urine Leukocyte Esterase 1+Raf/ul Urine Microscopic RBC 1/HPF Urine Microscopic WBC 2/HPF Urine Squamous Epithelial Cells FEW/HPF Urine Bacteria MANY/HPF Urine Mucus FEW/HPF Urine Hemoglobin NEGATIVEmg/dL Urine Glucose NEGATIVEmg/dL Urine Total Protein 2+mg/dl White Blood Count 11.310^3/ul Red Blood Count 4.1310^6/ul Hemoglobin 11.0g/dl Hematocrit 34.3% Mean Corpuscular Volume 83.1fl Mean Corpuscular Hemoglobin 26.6pg Mean Corpuscular Hemoglobin Concent 32.1g/dl Red Cell Distribution Width 14.3% Platelet Count 19546^3/UL Mean Platelet Volume 10.7fl Neutrophils % 61.9% Lymphocytes % 27.2% Monocytes % 7.6% Eosinophils % 2.1% Basophils % 0.8% Nucleated Red Blood Cells % 0.0/100WBC Neutrophils # 7.010^3/ul Lymphocytes # 3.110^3/ul Monocytes # 0.910^3/ul Eosinophils # 0.210^3/ul Basophils # 0.110^3/ul Nucleated Red Blood Cells # 0.010^3/ul Erythrocyte Sedimentation Rate 48mm/Hr Sodium Level 141mmol/L Potassium Level 5.3mmol/L Chloride Level 102mmol/L Carbon Dioxide Level 23mmol/L Anion Gap 21 Blood Urea Nitrogen 59mg/dl Creatinine 1.27mg/dl Glucose Level 159mg/dl Calcium Level 9.9mg/dl Total Bilirubin 0.3mg/dl Direct Bilirubin 0.00mg/dl Indirect Bilirubin 0.3mg/dl Aspartate Amino Transf (AST/SGOT) 21IU/L Alanine Aminotransferase (ALT/SGPT) 20IU/L Alkaline Phosphatase 113IU/L C-Reactive Protein < 0.5mg/dl Total Protein 9.0g/dl Albumin 4.9g/dl Globulin 4.10g/dl Albumin/Globulin Ratio 1.19 Current Medications Medications (Trade) Dose Ordered Sig/Patricia Route PRN Reason Start Time Stop Time Status Last Admin Dose Admin Vancomycin HCl 1.25 gm/Sodium Chloride 250 ml @ 83.333 mls/ hr ONCE ONCE IVPB 03/18/17 13:00 03/18/17 15:59 DC 03/18/17 13:57 Piperacillin Sod/ Tazobactam Sod 100 ml @ 200 mls/hr ONCE ONCE IVPB 03/18/17 13:00 03/18/17 13:29 DC 03/18/17 13:02 Sodium Chloride (NS) 1,000 ml @ 1,000 mls/hr Q1H ONCE IV 03/18/17 13:00 03/18/17 13:59 DC 03/18/17 13:02 Diphenhydramine HCl (Benadryl) 50 mg ONCE ONCE IV 03/18/17 17:00 03/18/17 17:01 DC 03/18/17 17:00 Procedures/MDM This is a 62-year-old female presents to the ER with right toe discharge that started yesterday. Per xray patient has cellulitis + osteomyelitis. Hospitalist automotive collision repair instructor will be consulted on this case for possible admission. Hospitalist automotive collision repair instructor was called and was at bedside to examine patient. On physical examination patient is well appearing and per hospitalist does not have cellulitis. I reviewed labwork and xray findings with hospitalist and patient does not have an elevated CRP and a normal physical examination, patient would not benefit from admission at this time and is stable for outpatient follow up. I did review urinalysis findings including presence of leukocytes and nitrates, however since patient is not symptomatic treatment is not indicated per hospitalist. Patient did develop an allergic reaction in the ER to Vancomycin, 50 mg of IV benadryl was given and reaction was controlled. Patient needs to f/u with the amputation prevention clinic as soon as possible. At this time per hospitalist medication of any sort is not indicated. My medical decision making was shared with the patient, she understands and agrees with plan. Departure Diagnosis: Primary Impression: Pain of toe Condition: Stable MORENO AZUL Mar 18, 2017 14:56 MORENO AZUL Mar 18, 2017 14:56
[2017-03-18 16:34] VITALS: BP 136/73; PULSE 70; RESP 18; TEMP 98.3
[2017-03-18] MEDS ORDERED: DIPHENHYDRAMINE 50 MG INJ IV ONE (17:00)
== END 2017-03-18 18:17 | disposition home or self-care (01) ==
LOC: FTE 12:07
DX: M79.674 Pain in right toe(s) (principal); E11.9 Type 2 diabetes mellitus without complications; Z79.82 Long term (current) use of aspirin; Z79.4 Long term (current) use of insulin; Z79.84 Long term (current) use of oral hypoglycemic drugs
CPT/HCPCS: 36415; 73630; 80053; 81001; 85025; 85651; 86140; 96374; 96375; J1200; J2543; J3370; J7030; J7050; Z7502

== ENCOUNTER 2017-04-21 15:19 | Emergency (ER) | payer BC ==
[~2017-04-21] VITALS: Ht 157.5 cm; Wt 67.5 kg
[2017-04-21 15:21] VITALS: Ht 157.5 cm; Wt 67.5 kg
[2017-04-21] MEDS ORDERED: BACI28.34 TOP (17:47)
[2017-04-21] MEDS ORDERED: CEPH-443 PO (17:47)
[2017-04-21] MEDS ORDERED: NAPR-260 PO (17:47)
[2017-04-21 18:05] VITALS: BP 175/79; PULSE 99; RESP 16; TEMP 98.3
--- NOTE | 2017-04-21 21:46 | ERD ---
ER Documentation Chief Complaint Date/Time DATE: 04/21/17 TIME: 21:42 Chief Complaint Complains of right foot pain since this am HPI 62 yr old Female coming in complaining of pain to her right toenail 1 day. Patient was sitting in a hammock and toenail lifted after it was caught on a piece of the hammock. Patient denies any numbness or tingling. Patient is able to ambulate without any difficulty. Patient states her toe did not get stuck on the nail got caught. Patient is diabetic and is concerned about having an open wound on her foot. ROS All systems reviewed and are negative except as per history of present illness. Medications Home Meds Active Scripts Naproxen* (Naprosyn*) 500 Mg Tablet, 500 MG PO BID Y for PAIN AND/OR INFLAMMATION, #30 TAB Prov:IRENA CALERO PA-C 04/21/17 Cephalexin* (Keflex*) 500 Mg Capsule, 500 MG PO QID for 7 Days, CAP Prov:IRENA CALERO PA-C 04/21/17 Bacitracin* (Bacitracin Zinc Oint*) 28.35 Gm Oint, 1 APPLIC TOP BID, #1 TUB APPLI TO Prov:IRENA CALERO PA-C 04/21/17 Daptomycin (Daptomycin) 500 Mg Vial, 360 MG IV DAILY for 42 Days, VIAL Prov:CHELLE WADE MD 10/14/16 Hydrocodone/Acetaminophen ([place] 5-325 Tablet) 1 Each Tablet, 1 TAB PO Q6H Y for PAIN, #20 TAB Prov:LIZ AMBRIZ DO 10/02/16 Methocarbamol* (Robaxin*) 750 Mg Tablet, 750 MG PO TID, #14 TAB Prov:LIZ AMBRIZ DO 10/02/16 Ibuprofen* (Motrin*) 600 Mg Tab, 600 MG PO Q8, #30 TAB Prov:LIZ AMBRIZ DO 10/02/16 Reported Medications Aspirin* (Aspirin* EC) 81 Mg Tablet.dr, 162 MG PO DAILY, TAB 10/01/16 Sitagliptin Phos/Metformin HCl (Janumet 50-1,000 mg Tablet) 1 Each Tablet, 1 EACH PO BID, TAB 10/01/16 Losartan Potassium* (Losartan Potassium*) 100 Mg Tablet, 100 MG PO DAILY, TAB 10/01/16 Pravastatin Sodium* (Pravastatin Sodium*) 10 Mg Tablet, 10 MG PO DAILY, TAB 10/01/16 Hydralazine Hcl* (Hydralazine Hcl*) 25 Mg Tab, 25 MG PO Q8, #90 TAB 10/01/16 Insulin Glargine* (Lantus*) 100 Unit/Ml Soln, 17 UNIT SC QHS, #1 VIAL 10/01/16 Allergies Allergies: Coded Allergies: vancomycin (Verified Allergy, Unknown, ITCHINESS, RASHES, 03/18/17) PMhx/Soc History of Surgery: Yes (S/P FEMPOP BYPASS;CATARACT SURGERY) Anesthesia Reaction: No Hx Neurological Disorder: No Hx Respiratory Disorders: No Hx Psychiatric Problems: No Hx Miscellaneous Medical Probl: Yes (DM) Hx Alcohol Use: No Hx Substance Use: No Hx Tobacco Use: No Physical Exam Vitals Vital Signs Date Time Temp Pulse Resp B/P Pulse Ox O2 Delivery O2 Flow Rate FiO2 04/21/17 18:05 98.3 99 16 175/79 97 Room Air 04/21/17 15:21 98.8 107 20 159/73 98 Physical Exam GENERAL: The patient is well-appearing, well-nourished, in no acute distress CHEST: Clear to auscultation bilaterally. There are no rales, wheezes or rhonchi. HEART: Regular rate and rhythm. No murmurs, clicks, rubs or gallops. No S3 or S4. EXTREMITIES: No deformity of the right great toe. Great toe nail is partially avulsed with dried blood around the toe. NEUROLOGIC: Neuro intact to right big toe. Pulses intact SKIN: There is no apparent rash or petechiae. The skin is warm and dry Procedures/MDM ER Course: Right great toenail was cleaned with copious amounts normal saline. Bacitracin applied and bandage applied. MDM: 62-year-old female coming in complaining of right great toe pain. Patient' s nail is partially avulsed. I do not feel there is indication for total removal of the nail as it is acting like a physiological Band-Aid. I have ow suspicion for bony injury. I have low suspicion for neurodeficit. I will place patient on antibiotics to cover prophylactically for possible infection. Patient is recommended to follow-up with primary care within 1 to 2 days for close evaluation. Departure Diagnosis: Primary Impression: Injury of foot Condition: Stable Patient Instructions: Nail Avulsion, Partial Referrals: KWAN MELLO MD (PCP) Additional Instructions: FOLLOW UP WITH YOUR PRIMARY CARE PHYSICIAN TOMORROW.Return to this facility if you are not improving as expected. IRENA CALERO PA-C Apr 21, 2017 21:46
== END 2017-04-21 18:09 | disposition home or self-care (01) ==
LOC: FTE 15:19
DX: S91.201A Unspecified open wound of right great toe with damage to nail, initial encounter (principal); E11.9 Type 2 diabetes mellitus without complications; W23.1XXA Caught, crushed, jammed, or pinched between stationary objects, initial encounter; Y92.9 Unspecified place or not applicable; Z79.4 Long term (current) use of insulin; Z79.82 Long term (current) use of aspirin; Z79.84 Long term (current) use of oral hypoglycemic drugs
CPT/HCPCS: 99283

== ENCOUNTER 2017-09-09 08:12 | Emergency (ER) | END 2017-09-09 09:13 | disposition home or self-care (01) ==

== ENCOUNTER 2017-09-11 08:09 | Emergency (ER) | END 2017-09-11 09:15 | disposition home or self-care (01) ==

== ENCOUNTER 2018-05-08 08:48 | Emergency (ER) | END 2018-05-08 13:55 | disposition home or self-care (01) ==

== ENCOUNTER 2019-02-11 23:17 | Emergency (ER) | payer OTHER ==
[~2019-02-11] VITALS: Ht 142.2 cm; Wt 72.2 kg
[~2019-02-11 23:17] MED LIST changes: +AMLO-147 PO; -ASPI-664 PO; +ASPI-817 PO; +ATOR10TA65 PO; -DAPT500V IV; -HYDR-906 PO; -IBUP-1542 PO; +LOSA100T15 PO; -LOSA100T7 PO; -METH750T93 PO; +ZOLP10TA PO
[2019-02-11 23:21] VITALS: Ht 142.2 cm; Wt 72.2 kg
[2019-02-12] MEDS ORDERED: SOD CHLORIDE 0.9% 720 ML IV ONE (01:30)
[2019-02-12] MEDS ORDERED: CIPR500T4 PO (02:52)
--- NOTE | 2019-02-12 02:52 | ERD ---
ER Documentation Chief Complaint Chief Complaint states high blood sugar at home (<300), c/o being hot/cold HPI This is a very pleasant six 4-year female comes in with complaints of elevated blood sugar at home and feeling fevers and chills. She denies any actual fevers that she felt hot. Denies any other current complaints. She has had urgency frequency of urination as well. Denies any current issues. ROS All systems reviewed and are negative except as per history of present illness. Medications Home Meds Active Scripts Insulin Glargine* (Lantus*) 100 Unit/Ml Soln, 17 UNIT SC QHS for 3 Days, VIAL Prov:FLORENTINO VALDEZ MD 05/08/18 Atorvastatin Calcium (Atorvastatin Calcium) 10 Mg Tablet, 10 MG PO QHS, #30 TAB Prov:FLORENTINO VALDEZ MD 05/08/18 Amlodipine Besylate* (Amlodipine Besylate*) 10 Mg Tablet, 10 MG PO DAILY, #30 TAB Prov:FLORENTINO VALDEZ MD 05/08/18 Sitagliptin Phos/Metformin HCl (Janumet 50-1,000 mg Tablet) 1 Each Tablet, 1 EACH PO BID for 30 Days, TAB Prov:FLORENTINO VALDEZ MD 05/08/18 Aspirin* (Aspirin* EC) 81 Mg Tablet., 81 MG PO DAILY for 30 Days, TAB Prov:FLORENTINO VALDEZ MD 05/08/18 Zolpidem Tartrate* (Ambien*) 10 Mg Tablet, 10 MG PO QHS PRN for INSOMNIA, #10 TAB Prov:POP BRICE MD 09/09/17 Reported Medications Aspirin* (Aspirin* EC) 81 Mg Tablet.dr, 162 MG PO DAILY, TAB 10/01/16 Sitagliptin Phos/Metformin HCl (Janumet 50-1,000 mg Tablet) 1 Each Tablet, 1 EACH PO BID, TAB 10/01/16 Losartan Potassium* (Losartan Potassium*) 100 Mg Tablet, 100 MG PO DAILY, TAB 10/01/16 Pravastatin Sodium* (Pravastatin Sodium*) 10 Mg Tablet, 10 MG PO DAILY, TAB 10/01/16 Hydralazine Hcl* (Hydralazine Hcl*) 25 Mg Tab, 25 MG PO Q8, #90 TAB 10/01/16 Insulin Glargine* (Lantus*) 100 Unit/Ml Soln, 17 UNIT SC QHS, #1 VIAL 10/01/16 Allergies Allergies: Coded Allergies: vancomycin (Verified Allergy, Unknown, ITCHINESS, RASHES, 03/18/17) PMhx/Soc History of Surgery: Yes (S/P FEMPOP BYPASS;CATARACT SURGERY) Anesthesia Reaction: No Hx Neurological Disorder: No Hx Respiratory Disorders: No Hx Cardiac Disorders: Yes (HTN) Hx Psychiatric Problems: No Hx Miscellaneous Medical Probl: Yes (DM) Hx Alcohol Use: No Hx Substance Use: No Hx Tobacco Use: No Smoking Status: Never smoker Physical Exam Vitals Vital Signs Date Temp Pulse Resp B/P (MAP) Pulse Ox O2 O2 Flow FiO2 Time Delivery Rate 02/12/19 99.0 88 16 147/67 99 Room Air 02:20 (93) 02/12/19 99.0 105 22 175/75 99 Room Air 01:24 (108) 02/11/19 99.0 109 18 159/65 99 23:21 (96) Physical Exam Const: No acute distress Head: Atraumatic Eyes: Normal Conjunctiva ENT: Normal External Ears, Nose and Mouth. Neck: Full range of motion. No meningismus. Resp: Clear to auscultation bilaterally Cardio: Regular rate and rhythm, no murmurs Abd: Soft, non tender, non distended. Normal bowel sounds Skin: No petechiae or rashes Back: No midline or flank tenderness Ext: No cyanosis, or edema Neur: Awake and alert Psych: Normal Mood and Affect Result Diagram: 02/12/195 02/12/19 0145 Results 24 hrs Laboratory Tests Test 02/11/19 23:38 02/12/19 01:19 02/12/19 01:45 02/12/19 02:13 Bedside Glucose 318 mg/dL 201 mg/dL Blood Gas Blood venous Specimen Source Arterial Blood 02/12/2019 1:40: Date Drawn 23 AM Arterial Blood VENOUS LINE Gas Puncture Site Travis Test N/A Venous Blood pH 7.469 Venous Blood 32.1 mmHG pCO2 (Temp Corrected ) Venous Blood 37.7 mmHG pO2 (Temp Corrected ) Venous Blood 22.8 mmol/L HCO3 Venous Blood 71.3 mmHG Oxygen Saturation Venous Blood -0.5 mmol/L Base Excess Venous Blood 9.7 g/dl Total Hemoglobin Venous Blood 70.8 % Oxyhemoglobin Venous Blood 0.4 % Methemoglobin Carboxyhemoglob 0.3 % in Blood Gas 37.0 C Temperature Blood Gas ROOM AIR Modality FiO2 21.0 % Blood Gas MR Notified Whom Blood Gas 02/12/2019 1:48: Notified Time 14 AM White Blood 12.1 10^3/ul Count Red Blood Count 4.09 10^6/ul Hemoglobin 10.6 g/dl Hematocrit 33.0 % Mean 80.7 fl Corpuscular Volume Mean 25.9 pg Corpuscular Hemoglobin Mean 32.1 g/dl Corpuscular Hemoglobin Conc ent Red Cell 13.6 % Distribution Width Platelet Count 387 10^3/UL Mean Platelet 11.4 fl Volume Immature 0.400 % Granulocytes % Neutrophils % 63.2 % Lymphocytes % 28.3 % Monocytes % 6.4 % Eosinophils % 1.1 % Basophils % 0.6 % Nucleated Red 0.0 /100WBC Blood Cells % Immature 0.050 10^3/ul Granulocytes # Neutrophils # 7.6 10^3/ul Lymphocytes # 3.4 10^3/ul Monocytes # 0.8 10^3/ul Eosinophils # 0.1 10^3/ul Basophils # 0.1 10^3/ul Nucleated Red 0.0 10^3/ul Blood Cells # Sodium Level 140 mmol/L Potassium Level 3.8 mmol/L Chloride Level 96 mmol/L Carbon Dioxide 29 mmol/L Level Anion Gap 15 Blood Urea 33 mg/dl Nitrogen Creatinine 1.04 mg/dl Est Glomerular 53 mL/min Filtrat Rate mL/min Glucose Level 250 mg/dl Calcium Level 9.6 mg/dl Phosphorus 3.7 mg/dl Level Magnesium Level 1.7 mg/dl Test 02/12/19 02:15 Urine Color STRAW Urine Clarity CLEAR Urine pH 7.0 Urine Specific 1.005 [place] Urine Ketones NEGATIVE mg/dL Urine Nitrite NEGATIVE mg/dL Urine Bilirubin NEGATIVE mg/dL Urine NEGATIVE mg/dL Urobilinogen Urine Leukocyte NEGATIVE Raf/ul Esterase Urine 0 /HPF Microscopic RBC Urine 8 /HPF Microscopic WBC Urine Bacteria FEW /HPF Urine 1+ mg/dL Hemoglobin Urine Glucose 2+ mg/dL Urine Total NEGATIVE mg/dl Protein Current Medications Medications Dose Sig/Patricia Start Time Status Last (Trade) Ordered Route PRN Stop Time Admin Dose Reason Admin Sodium 720 ml @ ONCE ONCE 02/12/19 DC 02/12/19 Chloride 720 mls/hr IV 01:30 01:30 02/12/19 02:29 Procedures/MDM Medical decision making: Patient comes in with no evidence of diabetic ke toacidosis. Sugars mildly elevated. She was treated with fluids here. Patient be discharged home with Cipro for UTI. She is been asked to follow-up with her primary care physician. Return for worsening symptoms. Departure Diagnosis: Primary Impression: Hyperglycemia Condition: Stable JULISSA GUTIERREZ Feb 12, 2019 02:52
[2019-02-12 02:57] VITALS: BP 153/70; PULSE 91; RESP 20
== END 2019-02-12 03:18 | disposition home or self-care (01) ==
LOC: E/R 23:17
DX: E11.65 Type 2 diabetes mellitus with hyperglycemia (principal); I10 Essential (primary) hypertension; Z79.4 Long term (current) use of insulin; Z79.82 Long term (current) use of aspirin
CPT/HCPCS: 36415; 80048; 81001; 82803; 82962; 83735; 84100; 85025; J7030; 96360

== ENCOUNTER 2019-02-27 07:04 | Emergency (ER) | payer OTHER ==
[~2019-02-27] VITALS: Wt 70.0 kg
[~2019-02-27 07:04] MED LIST changes: -ASPI-817 PO; +CIPR500T4 PO; -HYDR-3671 PO; -PRAV10TA43 PO; -SITA1TAB5 PO; -ZOLP10TA PO
[2019-02-27 07:05] VITALS: BP 159/69; PULSE 94; RESP 18
[2019-02-27] MEDS ORDERED: LORA-441 PO (07:25)
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
== END 2019-02-27 08:13 | disposition home or self-care (01) ==
LOC: E/R 07:04
DX: G47.00 Insomnia, unspecified (principal); I10 Essential (primary) hypertension; E11.9 Type 2 diabetes mellitus without complications; Z79.4 Long term (current) use of insulin
CPT/HCPCS: 99283

== ENCOUNTER 2019-03-08 12:47 | Emergency (ER) | payer OTHER ==
[~2019-03-08] VITALS: Wt 80.0 kg
[~2019-03-08 12:47] MED LIST changes: +LORA-441 PO
[2019-03-08] MEDS ORDERED: SOD CHLORIDE 0.9% 800 ML IV ONE (13:30)
[2019-03-08] MEDS ORDERED: LANT3I SC (14:14)
[2019-03-08] MEDS ORDERED: NPH,100V SQ (14:15)
[2019-03-08] MEDS ORDERED: LOSA50TA14 PO (14:17)
[2019-03-08] MEDS ORDERED: ASPI-817 PO (14:17)
[2019-03-08] MEDS ORDERED: MTF1000T PO (14:17)
[2019-03-08] MEDS ORDERED: ATOR20TA38 PO (14:17)
[2019-03-08] MEDS ORDERED: FURO-109 PO (14:18)
[2019-03-08] MEDS ORDERED: ACCU-CHEK XX ONE (14:30)
[2019-03-08] MEDS ORDERED: INSULIN LISPRO 100 UNIT/ML VIAL SC ONE (14:30)
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
[2019-03-08 15:02] VITALS: BP 140/71; PULSE 80; RESP 18
== END 2019-03-08 15:04 | disposition home or self-care (01) ==
LOC: E/R 12:47
DX: G47.00 Insomnia, unspecified (principal); I10 Essential (primary) hypertension; E11.65 Type 2 diabetes mellitus with hyperglycemia; Z79.4 Long term (current) use of insulin; Z79.82 Long term (current) use of aspirin
CPT/HCPCS: 36415; 80048; 81001; 82803; 82962; 83735; 84100; 85025; 96372; J1815; J7030; Z7502